=== PATIENT | male | born 1950 | race Caucasian/White ===

== ENCOUNTER → 2017-10-09 | Outpatient (CLI) | payer OTHER ==
[~2017-10-09] MED LIST: DIPH25CA65 PO
[2017-10-09 16:49] LABS: BASO % 0.3 %; BASO ABS # 0.02 K/uL (0-0.2); EOS % 2.9 %; HEMATOCRIT 41.9 % (42-52); HEMOGLOBIN 14.3 g/dL (14.0-18.0); IG# 0.01 K/uL (0.00-0.02); LYMPH ABS # 2.72 K/uL (1.2-3.4); MEAN CELL VOLUME 87.3 fL (80-100); MEAN CORPUSCULAR HEMOGLOBIN 29.8 pg (25-34); MEAN CORPUSCULAR HGB CONC 34.1 g/dl (32-36); MEAN PLATELET VOLUME 11.6 fL (7.4-10.4); MONO % 8.2 %; MONO ABS # 0.57 K/uL (0.11-0.59); NEUT % 49.5 %; NEUT ABS # 3.46 K/uL (1.4-6.5); PLATELET COUNT 211 K/uL (130-400); RED CELL DISTRIBUTION WIDTH CV 13.1 % (11.5-14.5); RED CELL DISTRIBUTION WIDTH SD 42.1 fL (36.4-46.3); WHITE BLOOD COUNT 6.98 K/uL (4.8-10.8)
[2017-10-09 17:06] LABS: ALBUMIN 3.9 gm/dl (3.4-5.0); ALKALINE PHOSPHATASE 47 U/L (45-117); ALT/SGPT 27 U/L (12-78); AST/SGOT 23 U/L (15-37); BLOOD UREA NITROGEN 14 mg/dl (7-18); CALCIUM 9.4 mg/dl (8.5-10.1); CARBON DIOXIDE 27 mmol/L (21-32); CHOLESTEROL 234 mg/dl (0-200); CREATININE 1.16 mg/dl (0.60-1.40); GLUCOSE 86 mg/dl (70-99); LDL CHOLESTEROL CALCULATED 119 mg/dl; POTASSIUM 4.3 mmol/L (3.5-5.1); SODIUM 138 mmol/L (136-145); TRANSFERRIN 243 mg/dl (200-360)
== END | disposition home or self-care (01) ==
LOC: C.LABBFT 14:19
PROVIDERS: ATTEND Physician Assistant Medical
DX: D64.9 Anemia, unspecified (principal); Z12.5 Encounter for screening for malignant neoplasm of prostate

== ENCOUNTER 2021-01-20 14:38 | Inpatient (IN) ==
[2021-01-20] MEDS ORDERED: ACETAMINOPHEN 1,000 MG/100 ML VIAL IV STA (15:02)
[2021-01-20] MEDS ORDERED: SODIUM CHLORIDE 0.9% 1000ML 1,000 ML IV ONE (15:02)
[2021-01-20] MEDS ORDERED: PIPERACILL/TAZOBAC CONSULT ACTIVE PRN (15:05)
[2021-01-20] MEDS ORDERED: PIPERACILLIN/TAZOBACTAM 4.5 GM/120 ML BAG IV ONE (15:05)
--- NOTE | 2021-01-20 15:13 | Emergency Department Note ---
Impression & Plan Diverticular disease of intestine with perforation and abscess, Leukocytosis, Abdominal pain ED Provider Note NAME: LORE LANIER AGE: 70 SEX: M ARRIVES VIA: Walk-In INFORMANT: Patient, ED PROVIDER(S): Erik Venegas MD CHIEF COMPLAINT: Referred, abdominal pain, abnormal CT PLAN: Disposition: Admit MEDICAL DECISION MAKING: The patient is a pleasant 70-year-old gentleman with a past medical history of hyper lipidemia, hypertension who presents emergency department for evaluation after having outpatient CT performed today which showed diverticulitis with 32 mm abscess in setting of patient reporting abdominal pain in the left lower quadrant approximately a week ago that lasted for couple of days and then resolved but then with symptoms of constipation and ongoing abdominal fullness since then. The patient denies any fevers though was told he had a fever of 101 in the office prior to arrival. He denies any nausea vomiting and last ate donuts this morning. He denies cough, congestion, chest pain, shortness of breath. He denies any abdominal pain at this time. He reports he has been moving his bowels recently, and move them this morning and yesterday which she described as soft and less volume than usual. On arrival the patient is in no acute distress, afebrile with stable vital signs. His abdomen is nontender at this time. WBC 12.3K. H/H 11.6/34.7 slightly decreased from prior values. Chemistry without metabolic acidosis. Lactate 1.2, within normal limits. LFTs are unremarkable. UA without convincing evidence of infection. COVID-19 PCR negative. Influenza and RSV PCR also negative. Patient agrees with plan for admission for IV ABX. Zosyn ordered. Case was discussed with General surgery PAC, Uzair Drew, and agrees initial management will be IV antibiotics. [place] [facility] [place] the patient for admission. Triage Nursing notes reviewed and agree them. Prior medical records reviewed Vital Signs: reviewed and remarkable for no significant abnormalities Differential diagnosis: Appendicitis, testicular torsion, infections, diverticulitis, UTI, obstruction, mesenteric ischemia, aortic pathology, inflammatory bowel disease, renal colic, PUD, pancreatitis, biliary pathology, hernia, volvulus, constipation, as well as other pathologies. ER treatment provided: See below. Diagnostics interpreted by me: ECG: Sinus rhythm, 90 bpm, PACs, no overt ST elevation or depression. Cardiac Monitoring: An order for continuous cardiac monitoring was placed and demonstrated Sinus rhythm, 90 bpm, PACs. Laboratory studies: See below Imaging studies: Outpatient CT: 01/20/2021. CT abd pelvis oral and IV con CLINICAL HISTORY: R10.9 - Unspecified abdominal pain GENERALIZED ABDOMINAL PAIN COMPARISON STUDY: Abdominal ultrasound performed October 2010 TECHNIQUE: Patient was scanned following administration of dilute oral contrast, and in a dynamic helical fashion during the intravenous administration of 89 cc of Optiray 300 A dose lowering technique was utilized adhering to the principles of ALARA. CT DOSE: 756.32 mGycm FINDINGS: Lower chest: There are scattered bilateral lower lobe pulmonary nodules, the largest of which measures 6.4 mm. A 3-6 months follow-up study is recommended per Fleischner criteria. Small hiatal hernia Liver: There is a subcentimeter left hepatic lobe hypodensity, likely representing a cyst. Gallbladder: There is soft tissue prominence of the gallbladder fundus statistically representing adenomyomatosis. Spleen: Normal in size and attenuation. Pancreas: Unremarkable. Adrenal glands: Unremarkable. Kidneys: 0r there is a rim calcified 13 mm left renal artery aneurysm. There is 17 mm left renal cyst. There is no hydronephrosis. Bowel: There are no transition zones to indicate bowel obstruction. The appendix appears normal. There is sausagelike thickening of the sigmoid colon with infiltration of the perisigmoid fat. The findings are indicative of acute diverticulitis. There is a 32 mm intramural abscess. Follow-up evaluation is recommended to exclude the unlikely possibility of an underlying neoplasm. Peritoneum: There is no intraperitoneal free air or abdominal ascites. There are small fat-containing inguinal hernias. There is a tiny fat-containing umbilical hernia Vasculature: The abdominal aorta is normal in course and caliber. Adenopathy: None. Pelvic viscera: There is mild prostatomegaly Skeletal structures: No destructive osseous lesions are seen. IMPRESSION: 1. Acute sigmoid diverticulitis with a 32 mm intramural abscess 2. No evidence of bowel obstruction. No evidence of free air. Normal appendix 3. 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 Bilateral pulmonary nodules measuring up to 6 mm in diameter. 3-6 months follow-up is recommended per Fleischner criteria. Consultation(s): General surgery PAC, Uzair Drew. [facility] [place] Dr. Kimbrough. HPI: The patient is a pleasant 70-year-old gentleman with a past medical history of hyper lipidemia, hypertension who presents to the emergency department for evaluation after having outpatient CT performed today which showed diverticulitis with 32 mm abscess in setting of patient reporting abdominal pain in the left lower quadrant approximately a week ago that lasted for couple of days and then resolved but then with symptoms of constipation and ongoing abdominal fullness since then. The patient denies any fevers though was told he had a fever of 101 in the office prior to arrival. He denies any nausea vomiting and last ate donuts this morning. He denies cough, congestion, chest pain, shortness of breath. He denies any abdominal pain at this time. He repor ts he has been moving his bowels recently, and move them this morning and yesterday which she described as soft and less volume than usual. ROS: See above HPI for pertinent positives & negatives. A total of 10 systems reviewed and were otherwise negative. PAST MEDICAL HISTORY:See Below PAST SURGICAL HISTORY:See Below FAMILY HISTORY:See Below SOCIAL HISTORY:See Below HOME MEDICATIONS:See Below ALLERGIES:See Below VITALS:See Below PHYSICAL EXAMINATION: GENERAL: Awake, alert, relatively well-appearing, in no distress HENT: Normocephalic, atraumatic. Oropharynx with dry mucous membranes and otherwise unremarkable. EYES: Normal conjunctiva. Sclera non-icteric. NECK: Supple. No nuchal rigidity. FROM. No JVD. RESPIRATORY: Clear to auscultation. CARDIAC: Regular rate, normal rhythm. Extremities warm and well perfused. Pulses equal. ABDOMEN: Soft, non-distended. No tenderness to palpation. No rebound or guarding. No masses. RECTAL: Deferred. MUSCULOSKELETAL: Chest examination reveals no tenderness. The back is symmetrical on inspection without obvious abnormality. There is no CVA tenderness to palpation. No joint edema. LOWER EXTREMITIES: Calves are equal size bilaterally and non-tender. No edema. No discoloration. NEURO: Normal sensorium. No sensory or motor deficits noted. SKIN: No rash or jaundice noted. 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 Beliefs That Will Affect Care: None marital status: Current Living Situation: Spouse current occupational status: retired Other Information That Helps Us Care for You: No Feels Safe at Home: Yes Safety Concerns: Feels Safe At This Time Assistive Devices: None Allergies Allergies Allergy/AdvReac Type Severity Reaction Status Date / Time Lisinopril TABS Allergy Intermediate angioedema Uncoded 01/20/21 15:24 amlodipine Allergy Unknown Unknown Uncoded 01/20/21 15:24 Home Meds Home Medications Medication Instructions Recorded Confirmed ferrous sulfate 325 mg (65 mg 325 mg PO DAILY tab 10/24/19 01/20/21 iron) tablet multivitamin 1 tab PO DAILY 01/20/21 01/20/21 triamterene-hydrochlorothiazid 0.5 tab PO QAM 01/20/21 01/20/21 Previous Rx's Medication Instructions Recorded rosuvastatin 5 mg tablet 5 mg PO DAILY #30 tab 11/08/20 Results & Data (ED) Vital Signs Vital Signs - 24 hr 01/20/21 14:44 01/20/21 15:01 01/20/21 16:00 Temperature 37.1 C Temperature Source Oral Pulse Rate 74 83 Pulse Rate from SpO2 Sensor 75 Respiratory Rate 18 20 16 Respiratory Effort / Characteristics Non-Labored Blood Pressure 152/81 H 134/70 Blood Pressure Mean 104 91 Pulse Oximetry 96 94 Oxygen Delivery Method Room Air Room Air Sepsis Recent Fever Within 48 Hours Yes Sepsis New/Unexplained Change in Mental Status N/A Sepsis Action Taken by Nursing MD Previously Notified 01/20/21 16:04 01/20/21 16:30 Temperature Temperature Source Pulse Rate 80 Pulse Rate from SpO2 Sensor 82 Respiratory Rate 14 Respiratory Effort / Characteristics Blood Pressure 120/62 Blood Pressure Mean 81 Pulse Oximetry 96 97 Oxygen Delivery Method Room Air Sepsis Recent Fever Within 48 Hours Sepsis New/Unexplained Change in Mental Status Sepsis Action Taken by Nursing Laboratory Data Result diagrams: 01/20/21 15:20 01/20/21 15:20 Lab Results 01/20/21 01/20/21 01/20/21 Range/Units 15:20 15:20 15:20 WBC 12.39 H (4.8-10.8) K/uL RBC 4.02 L (4.7-6.1) M/uL Hgb 11.6 L (14.0-18.0) g/dL Hct 34.7 L (42-52) % MCV 86.3 (80-100) fL MCH 28.9 (25-34) pg MCHC 33.4 (32-36) g/dL RDW Std Deviation 41.7 (36.4-46.3) fL RDW Coeff of Aidan 13.0 (11.5-14.5) % Plt Count 258 (130-400) K/uL MPV 10.2 (7.4-10.4) fL Immature Gran % (Auto) 0.3 % Neut % (Auto) 73.7 % Lymph % (Auto) 15.8 % [place] % (Auto) 9.1 % Eos % (Auto) 1.0 % Baso % (Auto) 0.1 % Neut # (Auto) 9.13 H (1.4-6.5) K/uL Lymph # (Auto) 1.96 (1.2-3.4) K/uL [place] # (Auto) 1.13 H (0.11-0.59) K/uL Eos # (Auto) 0.12 (0-0.5) K/uL Baso # (Auto) 0.01 (0-0.2) K/uL Immature Gran # (Auto) 0.04 H (0.00-0.02) K/uL PT 10.6 (9.0-12.0) Seconds INR 1.0 (0.9-1.1) APTT 28.7 (21.0-31.0) Seconds PTT Ratio 1.1 Sodium 134 L (136-145) mmol/L Potassium 3.7 (3.5-5.1) mmol/L Chloride 101 (98-107) mmol/L Carbon Dioxide 26 (21-32) mmol/L Anion Gap 7.0 (3-11) BUN 18 (7-18) mg/dl Creatinine 1.23 (0.6-1.4) mg/dl Est Cr Clr Drug Dosing 59.3 ml/min Est GFR ( Amer) 69.5 Est GFR (Non-Af Amer) 59.9 BUN/Creatinine Ratio 14.5 (10-20) Glucose 82 (70-99) mg/dl Lactate (0.4-2.0) mmol/L Calcium 9.1 (8.5-10.1) mg/dl Magnesium 2.1 (1.8-2.4) mg/dl Total Bilirubin 0.7 (0.2-1) mg/dl AST 19 (15-37) U/L ALT 18 (12-78) U/L Alkaline Phosphatase 52 (45-117) U/L Total Protein 7.6 (6.4-8.2) gm/dl Albumin 3.2 L (3.4-5.0) gm/dl Globulin 4.4 H (2.5-4.0) gm/dl Albumin/Globulin Ratio 0.7 L (0.9-2) Urine Color Urine Appearance (Clear) Urine pH (4.5-7.5) Ur Specific Stow (1.000-1.030) Urine Protein (Negative) Urine Glucose (UA) (Negative) Urine Ketones (Negative) Urine Blood (Negative) Urine Nitrite (Negative) Urine Bilirubin (Negative) Urine Urobilinogen (Negative) Ur Leukocyte Esterase (Negative) Urine WBC (Auto) (0-5) /hpf Urine RBC (Auto) (0-4) /hpf U Hyaline Cast (Auto) (0-5) /lpf U Epithel Cells (Auto) (0-5) /lpf Urine Bacteria (Auto) (Negative) COVID-19 Eval Order SARS-CoV-2 (PCR) (Negative) Influenza Type A (PCR) (Neg) Influenza Type B (PCR) (Neg) RSV (RT-PCR) (Neg) 01/20/21 01/20/21 01/20/21 Range/Units 15:20 15:20 15:20 WBC (4.8-10.8) K/uL RBC (4.7-6.1) M/uL Hgb (14.0-18.0) g/dL Hct (42-52) % MCV (80-100) fL MCH (25-34) pg MCHC (32-36) g/dL RDW Std Deviation (36.4-46.3) fL RDW Coeff of Aidan (11.5-14.5) % Plt Count (130-400) K/uL MPV (7.4-10.4) fL Immature Gran % (Auto) % Neut % (Auto) % Lymph % (Auto) % [place] % (Auto) % Eos % (Auto) % Baso % (Auto) % Neut # (Auto) (1.4-6.5) K/uL Lymph # (Auto) (1.2-3.4) K/uL [place] # (Auto) (0.11-0.59) K/uL Eos # (Auto) (0-0.5) K/uL Baso # (Auto) (0-0.2) K/uL Immature Gran # (Auto) (0.00-0.02) K/uL PT (9.0-12.0) Seconds INR (0.9-1.1) APTT (21.0-31.0) Seconds PTT Ratio Sodium (136-145) mmol/L Potassium (3.5-5.1) mmol/L Chloride (98-107) mmol/L Carbon Dioxide (21-32) mmol/L Anion Gap (3-11) BUN (7-18) mg/dl Creatinine (0.6-1.4) mg/dl Est Cr Clr Drug Dosing ml/min Est GFR ( Amer) Est GFR (Non-Af Amer) BUN/Creatinine Ratio (10-20) Glucose (70-99) mg/dl Lactate 1.2 (0.4-2.0) mmol/L Calcium (8.5-10.1) mg/dl Magnesium (1.8-2.4) mg/dl Total Bilirubin (0.2-1) mg/dl AST (15-37) U/L ALT (12-78) U/L Alkaline Phosphatase (45-117) U/L Total Protein (6.4-8.2) gm/dl Albumin (3.4-5.0) gm/dl Globulin (2.5-4.0) gm/dl Albumin/Globulin Ratio (0.9-2) Urine Color Urine Appearance (Clear) Urine pH (4.5-7.5) Ur Specific Stow (1.000-1.030) Urine Protein (Negative) Urine Glucose (UA) (Negative) Urine Ketones (Negative) Urine Blood (Negative) Urine Nitrite (Negative) Urine Bilirubin (Negative) Urine Urobilinogen (Negative) Ur Leukocyte Esterase (Negative) Urine WBC (Auto) (0-5) /hpf Urine RBC (Auto) (0-4) /hpf U Hyaline Cast (Auto) (0-5) /lpf U Epithel Cells (Auto) (0-5) /lpf Urine Bacteria (Auto) (Negative) COVID-19 Eval Order CovFluRsv at [facility] SARS-CoV-2 (PCR) NEGATIVE (Negative) Influenza Type A (PCR) Negative (Neg) Influenza Type B (PCR) Negative (Neg) RSV (RT-PCR) Negative (Neg) 01/20/21 Range/Units 16:00 WBC (4.8-10.8) K/uL RBC (4.7-6.1) M/uL Hgb (14.0-18.0) g/dL Hct (42-52) % MCV (80-100) fL MCH (25-34) pg MCHC (32-36) g/dL RDW Std Deviation (36.4-46.3) fL RDW Coeff of Aidan (11.5-14.5) % Plt Count (130-400) K/uL MPV (7.4-10.4) fL Immature Gran % (Auto) % Neut % (Auto) % Lymph % (Auto) % [place] % (Auto) % Eos % (Auto) % Baso % (Auto) % Neut # (Auto) (1.4-6.5) K/uL Lymph # (Auto) (1.2-3.4) K/uL [place] # (Auto) (0.11-0.59) K/uL Eos # (Auto) (0-0.5) K/uL Baso # (Auto) (0-0.2) K/uL Immature Gran # (Auto) (0.00-0.02) K/uL PT (9.0-12.0) Seconds INR (0.9-1.1) APTT (21.0-31.0) Seconds PTT Ratio Sodium (136-145) mmol/L Potassium (3.5-5.1) mmol/L Chloride (98-107) mmol/L Carbon Dioxide (21-32) mmol/L Anion Gap (3-11) BUN (7-18) mg/dl Creatinine (0.6-1.4) mg/dl Est Cr Clr Drug Dosing ml/min Est GFR ( Amer) Est GFR (Non-Af Amer) BUN/Creatinine Ratio (10-20) Glucose (70-99) mg/dl Lactate (0.4-2.0) mmol/L Calcium (8.5-10.1) mg/dl Magnesium (1.8-2.4) mg/dl Total Bilirubin (0.2-1) mg/dl AST (15-37) U/L ALT (12-78) U/L Alkaline Phosphatase (45-117) U/L Total Protein (6.4-8.2) gm/dl Albumin (3.4-5.0) gm/dl Globulin (2.5-4.0) gm/dl Albumin/Globulin Ratio (0.9-2) Urine Color Yellow Urine Appearance Clear (Clear) Urine pH 5.5 (4.5-7.5) Ur Specific Stow 1.038 H (1.000-1.030) Urine Protein Negative (Negative) Urine Glucose (UA) Negative (Negative) Urine Ketones Trace H (Negative) Urine Blood Trace H (Negative) Urine Nitrite Negative (Negative) Urine Bilirubin Negative (Negative) Urine Urobilinogen Negative (Negative) Ur Leukocyte Esterase Negative (Negative) Urine WBC (Auto) 0 (0-5) /hpf Urine RBC (Auto) 0-4 (0-4) /hpf U Hyaline Cast (Auto) 0 (0-5) /lpf U Epithel Cells (Auto) 0-5 (0-5) /lpf Urine Bacteria (Auto) Negative (Negative) COVID-19 Eval Order SARS-CoV-2 (PCR) (Negative) Influenza Type A (PCR) (Neg) Influenza Type B (PCR) (Neg) RSV (RT-PCR) (Neg) Administered Medications Enoxaparin Sodium (Enoxaparin Inj 40 Mg/0.4 Ml Syr) 40 mg SQ QPM MARICRUZ Stop: 02/19/21 20:59 Last Admin: 01/20/21 20:25 Dose: 40 mg Documented by: [id number] Lactated Ringer's (Lr) 1,000 mls @ 125 mls/hr IV .Q8H MARICRUZ Stop: 02/19/21 19:23 Last Admin: 01/20/21 20:22 Dose: 125 mls/hr Documented by: [id number] Piperacillin Sod/Tazobactam (Sod 3.375 gm/ Dextrose) 115 mls @ 28.75 mls/hr IV Q8H MARICRUZ; Protocol Stop: 01/30/21 19:59 Last Infusion: 01/21/21 00:53 Dose: 0 mls/hr Documented by: [id number] Admin: 01/20/21 20:53 Dose: 28.8 mls/hr Documented by: [id number] Discontinued Medications Sodium Chloride (Nss 1000ml) 1,000 mls @ 999 mls/hr IV .Q1H1M ONE Stop: 01/20/21 16:02 Last Infusion: 01/20/21 17:34 Dose: 0 mls/hr Documented by: [id number] Admin: 01/20/21 15:36 Dose: 999 mls/hr Documented by: [id number] Acetaminophen (Ofirmev) 1,000 mg in 100 mls @ 400 mls/hr IV NOW STA Stop: 01/20/21 15:16 Last Infusion: 01/20/21 15:51 Dose: 0 mls/hr Documented by: [id number] Admin: 01/20/21 15:36 Dose: 400 mls/hr Documented by: [id number] Piperacillin Sod/Tazobactam Sod (Zosyn) 4.5 gm in 120 mls @ 240 mls/hr IV NOW ONE Stop: 01/20/21 15:34 Last Infusion: 01/20/21 16:05 Dose: 0 mls/hr Documented by: [id number] Admin: 01/20/21 15:35 Dose: 240 mls/hr Documented by: [id number] Imaging Data Radiologist's Impression: Chest X-Ray 01/20/21 15:01 XR chest 1V portable CLINICAL HISTORY: Sepsis. COMPARISON STUDY: No previous studies for comparison. FINDINGS: Lung volumes are normal. Lungs are clear. There is no pneumothorax or pleural effusion. Moderate cardiomegaly is noted. Mediastinal contours are normal. There is no evidence for pulmonary edema. Old left-sided rib fractures are incidentally noted. IMPRESSION: No acute cardiopulmonary findings. Cardiomegaly. ACT 112: Negative or not required by law. Electronically signed by: Filemon Solis M.D. 01/20/2021 4:40 PM Discharge Plan Visit Data Chief Complaint: Abnormal Labs/Diagnostic Testing Stated Complaint: +CT FOR MASS IN ABD ED Provider: Erik Venegas Discharge Problem: Diverticular disease of intestine with perforation and abscess, Leukocytosis, Abdominal pain Patient Disposition: Admitted As Inpatient Discharge Instructions Interventions: ED Discharge Assessment Last Done: 01/20/21 19:11 Discharge Problem: Leukocytosis Qualifiers: Leukocytosis type: unspecified Qualified Code(s): D72.829 - Elevated white blood cell count, unspecified Abdominal pain Qualifiers: Abdominal location: left lower quadrant Qualified Code(s): R10.32 - Left lower quadrant pain
[2021-01-20 15:38] LABS: Basophils # (auto) 0.01 K/uL (0-0.2); Basophils % (auto) 0.1 %; Eosinophils # (auto) 0.12 K/uL (0-0.5); Hematocrit (blood only) 34.7 % (42-52); Hemoglobin 11.6 g/dL (14.0-18.0); Immature Granulocytes # (auto) 0.04 K/uL (0.00-0.02); Immature Granulocytes % (auto) 0.3 %; Lymphocytes # (auto) 1.96 K/uL (1.2-3.4); Lymphocytes % (auto) 15.8 %; Mean Corpuscular Hemoglobin 28.9 pg (25-34); Mean Corpuscular Hgb Conc 33.4 g/dL (32-36); Mean Corpuscular Volume 86.3 fL (80-100); Mean Platelet Volume 10.2 fL (7.4-10.4); Monocytes # (auto) 1.13 K/uL (0.11-0.59); Monocytes % (auto) 9.1 %; Neutrophils # (auto) 9.13 K/uL (1.4-6.5); Neutrophils % (auto) 73.7 %; Platelet Count 258 K/uL (130-400); RDW Standard Deviation 41.7 fL (36.4-46.3); Red Blood Count 4.02 M/uL (4.7-6.1); White Blood Count 12.39 K/uL (4.8-10.8)
--- NOTE | 2021-01-20 15:40 | Surgery Consultation ---
Date of Consultation January 20, 2021 Assessment & Plan (1) Diverticular disease of intestine with perforation and abscess: No acute abdominal findings. 3 cm diverticular abscess, WBC 12,000, would treat with IV antibiotics and bowel rest. Will continue to follow. Dr. Gibbonspatient to be admitted through the emergency room with a colonic/sigmoid intramural abscess of approximately 3 cm. Patient had symptoms of pain approximately 1 week ago and probably had a contained perforation at that point. Currently He is very stable but does have some mild obstructive symptoms from his colonic inflammation. I would keep him n.p.o. with ice only for least 48 hours and then possibly consider clear liquids but advance his diet very slowly. My concern would be obstructive symptoms from pericolonic inflammation. I suspect with this abscess he will be in the hospital for 5 to 7 days. I have discussed this with the patient and his History of Present Illness History of Present Illness 70 y/o male with abdominal pain last weeks for two days then feeling constipated and last night had fever of 100. Had outpatient CT today showing 3 cm diverticular abscess and referred to ED. No pain currently and has been eating but having only small BMs. No previous abdominal surgery. Diverticuli noted on colonoscopy 5 years ago but no previous diverticulitis and due for repeat c- scope this year. Allergies Allergy/AdvReac Type Severity Reaction Status Date / Time Lisinopril TABS Allergy Intermediate angioedema Uncoded 01/20/21 15:24 amlodipine Allergy Unknown Unknown Uncoded 01/20/21 15:24 Home Medications Medication Instructions Recorded Confirmed Type ferrous sulfate 325 mg (65 mg 325 mg PO DAILY tab 10/24/19 01/20/21 History iron) tablet rosuvastatin 5 mg tablet 5 mg PO DAILY #30 tab 11/08/20 01/20/21 Rx multivitamin 1 tab PO DAILY 01/20/21 01/20/21 History triamterene-hydrochlorothiazid 0.5 tab PO QAM 01/20/21 01/20/21 History Patient History Medical History HTN (hypertension) Hypercholesterolemia Leukopenia Surgical History No significant past surgical history Family History Father Amyotrophic lateral sclerosis Denies family history of Ovarian cancer Prostate cancer Myocardial infarction Breast cancer Colorectal cancer Social History Smoking Status: Never smoker Second Hand Exposure: No; Hx Alcohol Use: Yes Alcohol type Comment: socially Hx Substance Use: No marital status: Current Living Situation: Spouse current occupational status: retired Feels Safe at Home: Yes Review of Systems Constitutional: + fever; no chills and no anorexia Gastrointestinal: + abdominal pain and + constipation; no nausea and no vomiting Physical Exam Constitutional: WD/WN, vitals as above Respiratory: normal respiratory effort, lungs clear to auscultation Cardiovascular: RRR, no murmur, no edema Gastrointestinal (Abdomen): Inspection/Auscultation: abdomen not distended Percussion/Palpation: abdomen soft; abdomen nontender and no guarding Results & Data ([facility]) Vital Signs (Past 12 Hours) Vital Signs Temp Pulse Resp BP Pulse Ox 01/20/21 15:01 20 01/20/21 14:44 37.1 C 74 18 152/81 H 96 PG Care Time/CCT Total # of Minutes Spent Total Time Spent with Patient: Total time spent is greater than 50% in coordination of care (as documented) at patient's floor/unit and/or counseling patient: Coding Level of Care Code 28490 Initial Inpt Care Lvl 1 Diagnoses Diverticular disease of intestine with perforation and abscess K57.80
[2021-01-20 15:45] LABS: Partial Thromboplastin Ratio 1.1; Partial Thromboplastin Time 28.7 Seconds (21.0-31.0); Prothrombin Time 10.6 Seconds (9.0-12.0)
[2021-01-20 15:51] LABS: Albumin Level 3.2 gm/dl (3.4-5.0); BUN Creatinine Ratio 14.5 (10-20); Calcium 9.1 mg/dl (8.5-10.1); Creatinine Clr Calc Pharmacy 59.3 ml/min; Est GFR (African American) 69.5; Est GFR (Non-African American) 59.9; Magnesium 2.1 mg/dl (1.8-2.4); Potassium 3.7 mmol/L (3.5-5.1)
[2021-01-20 15:54] LABS: Albumin Globulin Ratio 0.7 (0.9-2); Bilirubin,Total 0.7 mg/dl (0.2-1); Globulin 4.4 gm/dl (2.5-4.0); Total Protein 7.6 gm/dl (6.4-8.2)
[2021-01-20 16:15] LABS: Influenza A virus by PCR Negative (Neg); Influenza B virus by PCR Negative (Neg); RSV by PCR Negative (Neg); SARS CoV2 RNA(COVID-19) InHosp NEGATIVE (Negative)
[2021-01-20 16:20] LABS: Appearance Urine Clear (Clear); Bacteria Urine Automated Negative (Negative); Bilirubin Urine Negative (Negative); Blood Urine Trace (Negative); Cast Urine Automated 0 /lpf (0-5); Color Urine Yellow; Epithelial Cell Urine Auto 0-5 /lpf (0-5); Glucose Urine UA Negative (Negative); Ketones Urine Trace (Negative); Leukocyte Esterase Urine Negative (Negative); Nitrite Urine Negative (Negative); Protein Urine Negative (Negative); RBC Urine Automated 0-4 /hpf (0-4); Specific Gravity Urine 1.038 (1.000-1.030); Urobilinogen Urine Negative (Negative); WBC Urine Automated 0 /hpf (0-5); pH Urine 5.5 (4.5-7.5)
--- NOTE | 2021-01-20 16:41 | XRay Report ---
XR chest 1V portable CLINICAL HISTORY: Sepsis. COMPARISON STUDY: No previous studies for comparison. FINDINGS: Lung volumes are normal. Lungs are clear. There is no pneumothorax or pleural effusion. Mod erate cardiomegaly is noted. Mediastinal contours are normal. There is no evidence for pulmonary richard a. Old left-sided rib fractures are incidentally noted. IMPRESSION: No acute cardiopulmonary findings. Cardiomegaly. ACT 112: Negative or not required by law. Electronically signed by: Filemon Solis M.D. 01/20/2021 4:40 PM
--- NOTE | 2021-01-20 16:56 | History & Physical Report ---
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 Conservative management with statin and antihypertensives. Consider annual surveillance with renal artery Doppler. (5) Pulmonary nodules: Incidental findings. 3-[address] chest follow up recommended. (6) DVT prophylaxis: Lovenox 40mg SQ daily Admission and Anticipated Discharge Date Admission Date: January 20, 2021 History of Present Illness Chief Complaint: Diverticulitis Primary Care Provider: Zhou Brown MD Xiang Kenyon is a 70-year-old male who presents to the ER with abdominal pain and outpatient CT showing diverticulitis with an abscess. He reports having 2 weeks of constipation. Abdominal pain started 6 days ago and seemed to initially get better. No hematemesis, melena, bright red blood in stool, nausea or vomiting. He went to see his PCP today who arranged an outpatient CT showing diverticulitis with a 32mm abscess therefore he was sent over to the ER. He reports having regular colonoscopies with Dr Chavez every 5 years due to polyps found. Next one would have been due in July. In the ER WBC was elevated. He was seen by surgery who recommend non-operative management at the current time. He was referred to medicine for admission and ongoing management of diverticulitits. Allergies Allergy/AdvReac Type Severity Reaction Status Date / Time Lisinopril TABS Allergy Intermediate angioedema Uncoded 01/20/21 15:24 amlodipine Allergy Unknown Unknown Uncoded 01/20/21 15:24 Home Medications Medication Instructions Recorded Confirmed Type ferrous sulfate 325 mg (65 mg 325 mg PO DAILY tab 10/24/19 01/20/21 History iron) tablet rosuvastatin 5 mg tablet 5 mg PO DAILY #30 tab 11/08/20 01/20/21 Rx multivitamin 1 tab PO DAILY 01/20/21 01/20/21 History triamterene-hydrochlorothiazid 0.5 tab PO QAM 01/20/21 01/20/21 History Past Med/Surg History Medical History HTN (hypertension) Hypercholesterolemia Leukopenia Surgical History No significant past surgical history Family History Father Amyotrophic lateral sclerosis Denies family history of Ovarian cancer Prostate cancer Myocardial infarction Breast cancer Colorectal cancer Social History Smoking Status: Never smoker Second Hand Exposure: No; Do You Dip or Chew Tobacco: No; Hx Alcohol Use: Yes Alcohol type: beer Alcohol type Comment: socially Hx Substance Use: No Preferred Language: Afghan Communication Ability: Effective Tread Cutter Required: No Beliefs That Will Affect Care: None marital status: Current Living Situation: Spouse current occupational status: retired Other Information That Helps Us Care for You: No Feels Safe at Home: Yes Safety Concerns: Feels Safe At This Time Assistive Devices: None Review of Systems Review of Systems: All systems reviewed & are unremarkable except as noted in HPI & below Physical Exam Constitutional: well developed and well nourished; no acute distress Eyes: + anicteric sclerae; normal pupil size ENMT: external ear and nose normal, oropharynx normal Neck: trachea midline, no thyromegaly Respiratory: normal respiratory effort, lungs clear to auscultation Cardiovascular: RRR, no murmur, no edema Gastrointestinal (Abdomen): Inspection/Auscultation: abdomen normal to inspection and + hyperactive bowel sounds; abdomen not distended Percussion/P alpation: + abdomen tender (mild LLQ) and abdomen soft; no guarding and abdomen not rigid Musculoskeletal: no cyanosis or clubbing, extremities motor strength 5/5 Skin: no rashes, warm and dry Neurologic: moves all extremities and awake; not confused Psychiatric: A+Ox3, euthymic affect Genitourinary: no CVA tenderness Results & Data Results & Data ([facility]) Vital Signs (Past 12 Hours) Vital Signs Temp Pulse Resp BP Pulse Ox 01/20/21 16:04 96 01/20/21 16:00 83 16 134/70 94 01/20/21 15:01 20 01/20/21 14:44 37.1 C 74 18 152/81 H 96 Diagnostic Findings XR chest 1V portable IMPRESSION: No acute cardiopulmonary findings. Cardiomegaly. CT abd pelvis oral and IV con IMPRESSION: 1. Acute sigmoid diverticulitis with a 32 mm intramural abscess 2. No evidence of bowel obstruction. No evidence of free air. Normal appendix 3. 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 Bilateral pulmonary nodules measuring up to 6 mm in diameter. 3-6 months follow-up is recommended per Fleischner criteria. Please refer to below summary of Fleischner criteria recommendations for follow- up of incidental CT nodules (Apolinar Garcia, Guidelines for management of small pulmonary nodules detected on CT scans: A statement from the Fleischner Society, Radiology 237: [phone].) Medications Administered ER Medications Given: Zosyn 4.5g IV ECG Indication: abdominal pain Rate (beats per minute): 90 Rhythm: normal sinus Findings: + PAC; no acute ischemic change Comparison ECG Date: no prior available Code Status & VTE Plan Code Status DNR/DNI per patient wishes VTE Prophylaxis Plan VTE Prophylaxis will be ordered: Yes PG Care Time/CCT Total # of Minutes Spent Total Time Spent with Patient: Total time spent is greater than 50% in coordination of care (as documented) at patient's floor/unit and/or counseling patient: Coding Level of Care Code 38513 Initial Inpt Care Lvl 3 Diagnoses Diverticular disease of intestine with perforation and abscess K57.80 HTN (hypertension) I10 Hypertension type: essential hypertension Hypercholesterolemia E78.00 Aneurysm of left renal artery I72.2 Pulmonary nodules R91.8 DVT prophylaxis Z29.9 (1) HTN (hypertension) Hypertension type: essential hypertension Qualified Code(s): I10 - Essential (primary) hypertension
[2021-01-20] MEDS ORDERED: ACETAMINOPHEN 1,000 MG/100 ML VIAL IV PRN (19:24)
[2021-01-20] MEDS ORDERED: HYDROmorphone INJ 0.5 MG/0.5 ML SYR IV PRN (19:24)
[2021-01-20] MEDS: LACTATED RINGER'S 1,000 ML IV SCH (20:22)
[2021-01-20] MEDS: ENOXAPARIN INJ 40 MG/0.4 ML SYR SQ SCH (20:25)
[2021-01-20] MEDS: PIPERACILLIN/TAZOBACTAM 3.375 GM in DEXTROSE 5% 100 ML IV SCH (20:53)
[2021-01-21] MEDS: LACTATED RINGER'S 1,000 ML IV SCH ×3 (04:07→22:55)
[2021-01-21] MEDS: PIPERACILLIN/TAZOBACTAM 3.375 GM in DEXTROSE 5% 100 ML IV SCH ×3 (04:07→19:37)
--- NOTE | 2021-01-21 06:33 | Surgery Progress Note ---
Date of Service January 21, 2021 Assessment & Plan (1) Diverticular disease of intestine with perforation and abscess: Patient with acute diverticulitis and intramural abscess He does not seem to be having much pain and appears to be very stable We will continue on ice only today Possibly some sips of liquids tomorrow, advance diet very slowly Monitor for obstructive symptoms Continue IV antibiotics Dr. Barry will be covering over the weekend Admission and Anticipated Discharge Date Admission Date: January 20, 2021 Subjective Patient is awake and alert sitting in his chair watching TV Vital signs are stable Taking no pain medication Review of Systems Review of Systems: All systems reviewed & are unremarkable except as noted in HPI & below Physical Exam Constitutional: well developed and well nourished; no acute distress Eyes: + anicteric sclerae Respiratory: normal respiratory effort; no respiratory distress Cardiovascular: Rate/Rhythm: regular rate Gastrointestinal (Abdomen): Inspection/Auscultation: abdomen not distended Musculoskeletal: Gait: normal gait Skin: no rashes, warm and dry Neurologic: awake Psychiatric: Orientation: alert Results & Data ([facility]) Vital Signs (Past 12 Hours) Vital Signs Temp Pulse Pulse Resp BP BP Pulse Ox 01/20/21 23:49 37.0 C 69 16 119/65 94 01/20/21 19:20 36.9 C 54 L 16 121/69 95 01/20/21 19:00 70 20 124/69 93 01/20/21 18:34 78 17 119/70 94 PG Care Time/CCT Total # of Minutes Spent Total Time Spent with Patient: Total time spent is greater than 50% in coordination of care (as documented) at patient's floor/unit and/or counseling patient: Coding Level of Care Code 37353 Subseq Hosp Care Lvl 3 Diagnoses Diverticular disease of intestine with perforation and abscess K57.80
[2021-01-21 07:15] LABS: Creatinine Clr Calc Pharmacy 63.5 ml/min; Est GFR (African American) 75.4
--- NOTE | 2021-01-21 12:18 | Hospitalist Progress Note ---
Date of Service January 21, 2021 Assessment & Plan (1) Diverticular disease of intestine with perforation and abscess: Zosyn 3.375g IV Q8H NPO continue IVF. If remains pain free, will iniate diet in AM. 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 Conservative management with statin and antihypertensives. Consider annual surveillance with renal artery Doppler. (5) Pulmonary nodules: Incidental findings. 3-[address] chest follow up recommended. (6) DVT prophylaxis: Lovenox 40mg SQ daily Admission and Anticipated Discharge Date Admission Date: January 20, 2021 Subjective Patient reports feeling great. Patient reports no new symptoms. Review of Systems Review of Systems: All systems reviewed & are unremarkable except as noted in HPI & below Physical Exam Physical Exam: Constitutional: well developed and well nourished; no acute distress Eyes: + anicteric sclerae; normal pupil size ENMT: external ear and nose normal, oropharynx normal Neck: trachea midline, no thyromegaly Respiratory: normal respiratory effort, lungs clear to auscultation Cardiovascular: RRR, no murmur, no edema Gastrointestinal (Abdomen): Inspection/Auscultation: abdomen normal to inspection and + hyperactive bowel sounds; abdomen not distended nontendr abdomen soft; no guarding and abdomen not rigid Musculoskeletal: no cyanosis or clubbing, extremities motor strength 5/5 Skin: no rashes, warm and dry Neurologic: moves all extremities and awake; not confused Psychiatric: A+Ox3, euthymic affect Genitourinary: no CVA tenderness Results & Data Results & Data ([facility]) Vital Signs (Past 12 Hours) Vital Signs Temp Pulse Resp BP Pulse Ox 01/21/21 07:20 37.0 C 81 17 126/71 94 PG Care Time/CCT Total # of Minutes Spent Total Time Spent with Patient: Total time spent is greater than 50% in coordination of care (as documented) at patient's floor/unit and/or counseling patient: Coding Level of Care Code 77906 Subseq Hosp Care Lvl 2 Diagnoses Diverticular disease of intestine with perforation and abscess K57.80 HTN (hypertension) I10 Hypertension type: essential hypertension Hypercholesterolemia E78.00 Aneurysm of left renal artery I72.2 Pulmonary nodules R91.8 DVT prophylaxis Z29.9 Time Spent (min) 25 (1) HTN (hypertension) Hypertension type: essential hypertension Qualified Code(s): I10 - Essential (primary) hypertension
--- NOTE | 2021-01-21 12:42 | Electrocardiogram Report ---
Test Reason : Blood Pressure : / mmHG Vent. Rate : 090 BPM Atrial Rate : 090 BPM P-R Int : 192 ms QRS Dur : 104 ms QT Int : 362 ms P-R-T Axes : 045 018 062 degrees QTc Int : 442 ms Sinus rhythm with Premature atrial complexes with Aberrant conduction Minimal voltage criteria for LVH, may be normal variant Borderline ECG No previous ECGs available Confirmed by Cruzito Oliver ([id number]) on 01/21/2021 12:42:06 PM Referred By: Keeley Serrano Confirmed By:Cruzito Oliver
[2021-01-21] MEDS: ENOXAPARIN INJ 40 MG/0.4 ML SYR SQ SCH (19:38)
[2021-01-22] MEDS: PIPERACILLIN/TAZOBACTAM 3.375 GM in DEXTROSE 5% 100 ML IV SCH ×3 (04:49→20:51)
[2021-01-22 07:06] LABS: Est GFR (African American) 80.4; Est GFR (Non-African American) 69.4
[2021-01-22] MEDS: LACTATED RINGER'S 1,000 ML IV SCH ×2 (08:16→17:52)
--- NOTE | 2021-01-22 08:39 | Surgery Progress Note ---
Date of Service January 22, 2021 Assessment & Plan (1) Diverticular disease of intestine with perforation and abscess: Patient clinically doing well VSS and afebrile He denies any abdominal pain/nausea/vomiting He is passing flatus and starting to move some loose stools Okay to advance diet to clear liquids this AM Patient seen. He feels great. He has no pain whatsoever. We will initiate clear liquid diet. Per Dr. Gibbons's instructions we will slowly advance diet. Discharge planning. Admission and Anticipated Discharge Date Admission Date: January 20, 2021 Subjective Patient states he is feeling well. Denies abdominal pain/nausea/vomiting. Says he is passing flatus and having loose stools. Physical Exam Physical Exam: awake/alert Constitutional: no acute distress Respiratory: normal respiratory effort Gastrointestinal (Abdomen): Inspection/Auscultation: abdomen not distended Percussion/Palpation: abdomen soft; abdomen nontender Results & Data ([facility]) Vital Signs (Past 12 Hours) Vital Signs Temp Pulse Resp BP Pulse Ox 01/22/21 07:20 36.5 C 73 17 120/71 94 01/21/21 22:34 37.1 C 81 16 154/70 H 93 PG Care Time/CCT Total # of Minutes Spent Total Time Spent with Patient: Total time spent is greater than 50% in coordination of care (as documented) at patient's floor/unit and/or counseling patient: Coding Level of Care Code 36546 Subseq Hosp Care Lvl 2 Diagnoses Diverticular disease of intestine with perforation and abscess K57.80
[2021-01-22] MEDS: ENOXAPARIN INJ 40 MG/0.4 ML SYR SQ SCH (21:09)
--- NOTE | 2021-01-22 22:56 | Hospitalist Progress Note ---
Date of Service January 22, 2021 Assessment & Plan (1) Diverticular disease of intestine with perforation and abscess: Remains pain free. Zosyn 3.375g IV Q8H Now on clear liquid diet, will transition to a full liquid diet. continue IVF for now. Follow up with Dr Chavez for colonoscopy after resolution of diverticulitis (2) HTN (hypertension): Hold his usual diuretic for now as IVF are ordered. 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 Conservative management with statin and antihypertensives. Consider annual surveillance with renal artery Doppler. (5) Pulmonary nodules: Incidental findings. 3-[address] chest follow up recommended. (6) DVT prophylaxis: Lovenox 40mg SQ daily Admission and Anticipated Discharge Date Admission Date: January 20, 2021 Subjective Patient is feeling well. He has no symptoms. He tolerated his clear liquid diet for breakfast and lunch. Review of Systems Review of Systems: All systems reviewed & are unremarkable except as noted in HPI & below Physical Exam Physical Exam: Constitutional: well developed and well nourished; no acute distress Eyes: + anicteric sclerae; normal pupil size ENMT: external ear and nose normal, oropharynx normal Neck: trachea midline, no thyromegaly Respiratory: normal respiratory effort, lungs clear to auscultation Cardiovascular: RRR, no murmur, no edema Gastrointestinal (Abdomen): Inspection/Auscultation: abdomen normal to inspection and + hyperactive bowel sounds; abdomen not distended nontendr abd omen soft; no guarding and abdomen not rigid Musculoskeletal: no cyanosis or clubbing, extremities motor strength 5/5 Skin: no rashes, warm and dry Neurologic: moves all extremities and awake; not confused Psychiatric: A+Ox3, euthymic affect Genitourinary: no CVA tenderness Results & Data Results & Data ([facility]) Vital Signs (Past 12 Hours) Vital Signs Temp Pulse Resp BP Pulse Ox 01/22/21 22:17 36.9 C 67 16 145/77 H 90 01/22/21 14:32 36.6 C 69 16 125/68 97 PG Care Time/CCT Total # of Minutes Spent Total Time Spent with Patient: Total time spent is greater than 50% in coordination of care (as documented) at patient's floor/unit and/or counseling patient: Coding Level of Care Code 81017 Subseq Hosp Care Lvl 2 Diagnoses Diverticular disease of intestine with perforation and abscess K57.80 HTN (hypertension) I10 Hypertension type: essential hypertension Hypercholesterolemia E78.00 Aneurysm of left renal artery I72.2 Pulmonary nodules R91.8 DVT prophylaxis Z29.9 Time Spent (min) 25 (1) HTN (hypertension) Hypertension type: essential hypertension Qualified Code(s): I10 - Essential (primary) hypertension
[2021-01-23] MEDS: PIPERACILLIN/TAZOBACTAM 3.375 GM in DEXTROSE 5% 100 ML IV SCH (03:18)
[2021-01-23] MEDS: LACTATED RINGER'S 1,000 ML IV SCH (03:18)
[2021-01-23 08:01] LABS: Basophils # (auto) 0.01 K/uL (0-0.2); Basophils % (auto) 0.2 %; Eosinophils # (auto) 0.22 K/uL (0-0.5); Eosinophils % (auto) 3.9 %; Hematocrit (blood only) 36.1 % (42-52); Hemoglobin 12.4 g/dL (14.0-18.0); Immature Granulocytes # (auto) 0.02 K/uL (0.00-0.02); Immature Granulocytes % (auto) 0.4 %; Lymphocytes # (auto) 1.85 K/uL (1.2-3.4); Lymphocytes % (auto) 33.2 %; Mean Corpuscular Hemoglobin 29.7 pg (25-34); Mean Corpuscular Hgb Conc 34.3 g/dL (32-36); Mean Corpuscular Volume 86.4 fL (80-100); Monocytes # (auto) 0.38 K/uL (0.11-0.59); Monocytes % (auto) 6.8 %; Neutrophils # (auto) 3.09 K/uL (1.4-6.5); Neutrophils % (auto) 55.5 %; Platelet Count 312 K/uL (130-400); RDW Standard Deviation 41.6 fL (36.4-46.3); Red Blood Count 4.18 M/uL (4.7-6.1); White Blood Count 5.57 K/uL (4.8-10.8)
--- NOTE | 2021-01-23 08:09 | Surgery Progress Note ---
Date of Service January 23, 2021 Assessment & Plan (1) Diverticular disease of intestine with perforation and abscess: improved WBC 5 cont on Zosyn as above. looks great. no pain. natalie diet. ok to slowly advance diet. potential d/c today/tomorrow. will d/w Dr. Galloway. home/diet instructions given. f/u Dr. Gibbons 1-2 weeks. Admission and Anticipated Discharge Date Admission Date: January 20, 2021 Subjective bowels moving, had full liquids last night, no fevers/chills Physical Exam Gastrointestinal (Abdomen): Inspection/Auscultation: abdomen not distended Percussion/Palpation: abdomen nontender and + abdomen not soft Results & Data ([facility]) Vital Signs (Past 12 Hours) Vital Signs Temp Pulse Resp BP Pulse Ox 01/23/21 07:30 37.0 C 78 144/81 H 96 01/22/21 22:17 36.9 C 67 16 145/77 H 90 PG Care Time/CCT Total # of Minutes Spent Total Time Spent with Patient: Total time spent is greater than 50% in coordination of care (as documented) at patient's floor/unit and/or counseling patient: Coding Level of Care Code 26043 Subseq Hosp Care Lvl 2 Diagnoses Diverticular disease of intestine with perforation and abscess K57.80
[2021-01-23 08:15] LABS: Creatinine Clr Calc Pharmacy 68.2 ml/min; Est GFR (African American) 82.2
--- NOTE | 2021-01-23 15:55 | Discharge Summary ---
Date of Service January 23, 2021 Admission HPI Per Admitting Provider Xiang Kenyon is a 70-year-old male who presents to the ER with abdominal pain and outpatient CT showing diverticulitis with an abscess. He reports having 2 weeks of constipation. Abdominal pain started 6 days ago and seemed to initially get better. No hematemesis, melena, bright red blood in stool, nausea or vomiting. He went to see his PCP today who arranged an outpatient CT showing diverticulitis with a 32mm abscess therefore he was sent over to the ER. He reports having regular colonoscopies with Dr Chavez every 5 years due to polyps found. Next one would have been due in July. In the ER WBC was elevated. He was seen by surgery who recommend non-operative management at the current time. He was referred to medicine for admission and ongoing management of diverticulitits. Principal Diagnosis Diverticulitis with small abscess Discharge Exam Constitutional WD/WN, vitals as above Eyes EOM intact bilaterally; no conjunctival abnormality ENMT external ear and nose normal, oropharynx normal Neck trachea midline, no thyromegaly normal visual inspection Respiratory normal respiratory effort, lungs clear to auscultation no respiratory distress Cardiovascular RRR, no murmur, no edema Gastrointestinal (Abdomen) Inspection/Auscultation: abdomen normal to inspection; abdomen not distended Musculoskeletal no cyanosis or clubbing, extremities motor strength 5/5 Skin no rashes, warm and dry Neurologic moves all extremities and awake Psychiatric Orientation: alert, oriented to person and cooperative Discharge Data Allergies Allergy/AdvReac Type Severity Reaction Status Date / Time lisinopril Allergy Intermediate Angioedema Verified 01/23/21 07:33 amlodipine Allergy Unknown Unknown Verified 01/23/21 07:33 Consultations 01/20/21 16:23 ED Decision to Admit Stat Hospital Course (1) Diverticular disease of intestine with perforation and abscess: Remains pain free. Zosyn 3.375g IV Q8H - Did well. Cleared by surgery for discharge on 01/23. Sent out with 7 more days of abx to complete a 10-day course. Will need to see Dr. Gibobns next week to ensure he continues to improve. - Follow up with Dr Chavez for colonoscopy after resolution of diverticulitis. (2) HTN (hypertension): Hold his usual diuretic for now as IVF are ordered. 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 Conservative management with statin and antihypertensives. - Consider annual surveillance with renal artery Doppler. (5) Pulmonary nodules: Incidental findings. 3-[address] chest follow up recommended. (6) DVT prophylaxis: Lovenox 40mg SQ daily Total Time Total Time Spent Total Time Spent (In Minutes): 35 Discharge Plan Discharge Items Patient Disposition: Home - Self-Care Reason For Visit: DIVERTICULITIS WITH ABSCESS Discharge Diagnosis: Diverticulitis Activity: Resume your previous activity Non-emergency contact: Primary Care Provider and Surgeon Call non-emergency contact if: your symptoms worsen and your temperature is above 101 Follow-up/Referrals: Juan Manuel Gibbons MD, FACS [Physician] - (Please call the office to be seen in 7- 10 days for diverticulitis/abscess) Osmani Brown MD [Primary Care Provider] - Diet: Low Fiber Addtl Attending Provider Instructions: Mr. Kenyon, Devon were admitted to the hospital with diverticulitis which is an infection in the large intestine (also called "colon"). You also had a small abscess noted on the CT scan. We treated you with antibiotics, and you are doing better now. Please slowly increase your diet at home until you are back to your normal diet. High fiber diet will help keep this from happening again. Please take your next antibiotic dose tonight and for the next week until gone, even if you are feeling better sooner. Please follow up with Dr. Gibbons. Of note, the CT scan also saw some small pulmonary nodule. Most of the nodules we find on CT scans (for all patients) are benign. The radiology team recommended following up with your PCP for 3-6 months follow-up as recommended. Pending Studies at Discharge: No Stand-Alone Forms: My [facility] [employer], Smoking Cessation Medications and DC Order Prescriptions: New amoxicillin-pot clavulanate [Augmentin] 875-125 mg tablet 1 tab PO BID Qty: 15 RF: 0 Continued rosuvastatin 5 mg tablet 5 mg PO DAILY Qty: 30 RF: 5 ferrous sulfate [Nilton-Time] 325 mg (65 mg iron) tablet 325 mg PO DAILY RF: 0 multivitamin Tablet 1 tab PO DAILY RF: 0 triamterene-hydrochlorothiazid 37.5-25 mg tablet 0.5 tab PO QAM RF: 0 Discharge Orders: Discharge Order (Routine); Ordered 01/23/21 Ordered By: Emir Edmond/Other Patient Handouts: ED Diverticulitis Admission Data Admit Date/Time: 01/20/21 16:54 Attending Provider: Emir Galloway Admit Provider: Carlo Kimbrough Primary Care Provider: Osmani Brown Other Providers: Emir Galloway Other Interventions: Discharge Summary Assessment (RN) Last Done: 01/23/21 09:24 Coding Level of Care Code D/C Day Management >30 mins Diagnoses Diverticular disease of intestine with perforation and abscess K57.80 HTN (hypertension) I10 Hypertension type: essential hypertension Hypercholesterolemia E78.00 Aneurysm of left renal artery I72.2 Pulmonary nodules R91.8 DVT prophylaxis Z29.9
[2021-01-23] MEDS ORDERED: ROSUVASTATIN CALCIUM 5 MG TAB PO SCH (21:00)
== END 2021-01-23 10:29 | disposition home or self-care (01) | DRG 392 ==
LOC: ED 14:38 → SUATTDRO 16:54 → 3N 16:54

== ENCOUNTER 2021-07-22 11:41 | Observation (INO) ==
[2021-07-22 14:42] LABS: Basophils # (auto) 0.03 K/uL (0-0.2); Basophils % (auto) 0.3 %; Eosinophils # (auto) 0.11 K/uL (0-0.5); Hematocrit (blood only) 39.5 % (42-52); Hemoglobin 13.1 g/dL (14.0-18.0); Immature Granulocytes # (auto) 0.03 K/uL (0.00-0.02); Immature Granulocytes % (auto) 0.3 %; Lymphocytes # (auto) 3.13 K/uL (1.2-3.4); Lymphocytes % (auto) 27.7 %; Mean Corpuscular Hemoglobin 29.4 pg (25-34); Mean Corpuscular Hgb Conc 33.2 g/dL (32-36); Mean Corpuscular Volume 88.6 fL (80-100); Mean Platelet Volume 10.4 fL (7.4-10.4); Monocytes # (auto) 1.02 K/uL (0.11-0.59); Neutrophils # (auto) 6.97 K/uL (1.4-6.5); Neutrophils % (auto) 61.7 %; Platelet Count 212 K/uL (130-400); RDW Coefficient of Variation 13.2 % (11.5-14.5); RDW Standard Deviation 42.4 fL (36.4-46.3); Red Blood Count 4.46 M/uL (4.7-6.1); White Blood Count 11.29 K/uL (4.8-10.8)
[2021-07-22 14:52] LABS: Appearance Urine Clear (Clear); Bacteria Urine Automated Negative (Negative); Bilirubin Urine Negative (Negative); Blood Urine Trace (Negative); Color Urine Yellow; Epithelial Cell Urine Auto 0-5 /lpf (0-5); Glucose Urine UA Negative (Negative); Ketones Urine 1+ (Negative); Leukocyte Esterase Urine Negative (Negative); Nitrite Urine Negative (Negative); Protein Urine Negative (Negative); RBC Urine Automated 0-4 /hpf (0-4); Specific Gravity Urine 1.017 (1.000-1.030); Urobilinogen Urine Negative (Negative); pH Urine 5.5 (4.5-7.5)
[2021-07-22 14:54] LABS: Albumin Level 3.8 gm/dl (3.4-5.0); BUN Creatinine Ratio 14.1 (10-20); Calcium 9.9 mg/dl (8.5-10.1); Creatinine Clr Calc Pharmacy 54.5 ml/min; Est GFR (African American) 63.3 ml/min; Est GFR (Non-African American) 54.7 ml/min; Potassium 4.2 mmol/L (3.5-5.1)
[2021-07-22 14:57] LABS: Albumin Globulin Ratio 0.8 (0.9-2); Bilirubin,Total 0.8 mg/dl (0.2-1); Globulin 4.6 gm/dl (2.5-4.0); Total Protein 8.4 gm/dl (6.4-8.2)
--- NOTE | 2021-07-22 16:16 | Emergency Department Note ---
History of Present Illness General Chief complaint: Abdominal Pain Stated complaint: ABDOMINAL PAIN, REFERRED BY Time Seen by Provider: 07/22/21 14:10 Source: patient Mode of arrival: ambulatory Limitations: no limitations History of Present Illness Provider complaint: lower abd pain Onset (ago): day(s) 1 Location: abdomen Radiation: back Severity: mild Exacerbated By: + none Associated symptoms: + fever/chills; no loss of appetite or no nausea/vomiting Treatments prior to arrival: none This is a 71-year-old male presents emergency department with concern for lower abdominal pain. Patient states symptoms began yesterday, and he developed a fever last night to 100.2. He states today no fever however the pain felt worse and was radiating into his low back. He denies fevers, chills, nausea or vomiting. He states the pain feels similar to an episode of diverticulitis 6 months ago. He states he did have follow-up testing including colonoscopy. 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 Patient states with the last episode he did have an accompanying abscess and was hospitalized for 3 days before completing a course of antibiotics at home. Patient states no recent change in any additional medications, no recent change in diet. Patient states yesterday his bowel movements seemed less than normal however denies that they were black or bloody. He states today he is passing gas however has not had a bowel movement. No change in urine or difficulty urinating. Pt seen during a time of high acuity and national emergency pandemic while wearing PPE. Home Medications Medication Instructions Recorded Confirmed Type ferrous sulfate 325 mg (65 mg 325 mg PO QAM tab 10/24/19 07/22/21 History iron) tablet (Nilton-Time) multivitamin 1 tab PO QAM 01/20/21 07/22/21 History triamterene 37.5 0.5 tab PO QAM 01/20/21 07/22/21 History mg-hydrochlorothiazide 25 mg tablet rosuvastatin 5 mg tablet 5 mg PO QAM #90 tab 05/06/21 07/22/21 Rx amoxicillin 875 mg-potassium 1 tab PO BID #20 tab 07/23/21 Rx clavulanate 125 mg tablet (Augmentin) Allergies Allergy/AdvReac Type Severity Reaction Status Date / Time lisinopril Allergy Intermediate Angioedema Verified 07/22/21 14:13 amlodipine Allergy Unknown Unknown Verified 07/22/21 14:13 Past Med/Surg History Medical History Aneurysm of left renal artery pcp monitoring Broken rib left --- 2/2 fall on 02/06/21 Colonic diverticular abscess Diverticular disease History of colon polyps History of diverticulitis HTN (hypertension) Hypercholesterolemia Umbilical hernia Surgical History H/O colonoscopy (02/07/16) COLON, SIGMOID, POLYPECTOMY: 1. FRAGMENTS OF PARTIALLY CAUTERIZED, EDEMATOUS MUCOSA. 2. NO ADENOMA OR DEFINITIVE NON-ADENOMATOUSPOLYP IDENTIFIED. Case History of open reduction and internal fixation (ORIF) procedure LLE History of surgery on extremity RLE History of tooth extraction No significant past surgical history Family History Father Amyotrophic lateral sclerosis Other No family history of adverse response to anesthesia Denies family history of Ovarian cancer Prostate cancer Myocardial infarction Breast cancer Colorectal cancer Social History Smoking Status: Never smoker Second Hand Exposure: Yes (as a child); Hx Alcohol Use: Yes Alcohol type: beer Alcohol type Comment: socially Hx Substance Use: No Preferred Language: Kyrgyz Communication Ability: Effective 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 Beliefs That Will Affect Care: None marital status: Current Living Situation: Spouse current occupational status: retired current occupation: [employer] How many Children do You have: 3 Feels Safe at Home: Yes Assistive Devices: None Review of Systems A total of 10 systems reviewed and were otherwise negative All systems reviewed & are unremarkable except as noted in HPI & below Physical Exam Vital Signs Vital Signs - 24 hr 07/22/21 11:42 07/22/21 14:34 07/22/21 16:22 Temperature 36.2 C L 37.1 C Temperature Source Temporal Artery Scan Oral Pulse Rate 86 Pulse Rate [Finger] 68 72 Pulse Rhythm [Finger] Regular Regular Pulse Strength [Finger] Normal Normal Respiratory Rate 18 18 16 Respiratory Effort / Characteristics Non-Labored Spontaneous Non-Labored Spontaneous Respiratory Depth Normal Normal Respiratory Pattern Regular Regular Blood Pressure 139/88 Blood Pressure [Right Arm] 103/85 136/78 Blood Pressure Mean 105 Blood Pressure Mean [Right Arm] 91 97 Blood Pressure Position [Right Arm] Sitting Pulse Oximetry 97 97 97 Oxygen Delivery Method Room Air Room Air Room Air Sepsis Recent Fever Within 48 Hours No Sepsis New/Unexplained Change in Mental Status No Sepsis Action Taken by Nursing No Action Required GENERAL: alert, well appearing, well nourished, no distress, non-toxic EYE EXAM: normal conjunctiva, PERRL and EOM's grossly intact OROPHARYNX: no exudate, no erythema, lips, buccal mucosa, and tongue normal and mucous membranes are moist NECK: supple, no nuchal rigidity, no adenopathy, non-tender LUNGS: Clear to auscultation. Normal chest wall mechanics, no w/r/r HEART: no murmurs, S1 normal and S2 normal ABDOMEN: abdomen soft, mild suprapubic tenderness with palpation, normo-active bowel sounds, no masses, no rebound or guarding. Dull to percussion. No distention. BACK: Back is symmetrical on inspection and there is no deformity, no midline tenderness, no CVA tenderness. SKIN: no rashes and no bruising UPPER EXTREMITIES: upper extremities are grossly normal. FROM, nml pulses b/l. LOWER EXTREMITIES: No pitting edema. FROM, nml pulses b/l. NEURO EXAM: Normal sensorium, cranial nerves II-XII grossly intact, normal speech, no gross weakness of arms, no gross weakness of legs. Gross sensation intact. Course Course 165: Patient updated on results. No change in symptoms. 170: Discussed with Dr. Tillman. 1709: Discussed with Dr. Galloway, gen surg. Administered Medications Discontinued Medications Piperacillin Sod/Tazobactam Sod (Zosyn) 4.5 gm in 120 mls @ 240 mls/hr IV NOW ONE Stop: 07/22/21 17:24 Last Infusion: 07/22/21 17:44 Dose: 0 mls/hr Documented by: [id number] Admin: 07/22/21 17:12 Dose: 240 mls/hr Documented by: [id number] Potassium Chloride/Sodium Chloride (Normal Saline W/20 Meq Kcl) 20 meq in 1,000 mls @ 125 mls/hr IV .Q8H MARICRUZ Stop: 08/21/21 22:59 Last Admin: 07/23/21 07:57 Dose: 125 mls/hr Documented by: [id number] Infusion: 07/23/21 07:55 Dose: 125 mls/hr Documented by: [id number] Admin: 07/22/21 23:55 Dose: 125 mls/hr Documented by: [id number] Piperacillin Sod/Tazobactam (Sod 3.375 gm/ Dextrose) 115 mls @ 28.75 mls/hr IV Q8H MARICRUZ; Protocol Stop: 08/01/21 22:59 Last Infusion: 07/23/21 10:35 Dose: 0 mls/hr Documented by: [id number] Admin: 07/23/21 06:31 Dose: 28.8 mls/hr Documented by: [id number] Infusion: 07/23/21 03:52 Dose: 0 mls/hr Documented by: [id number] Admin: 07/22/21 23:55 Dose: 28.8 mls/hr Documented by: [id number] Ioversol (Optiray 320 100ml) 93 ml IV ONCE ONE Stop: 07/22/21 16:36 Last Admin: 07/22/21 16:35 Dose: 1 ml Documented by: [id number] Rosuvastatin Calcium (Rosuvastatin Calcium 5 Mg Tab) 5 mg PO QAM MARICRUZ Stop: 08/22/21 08:59 Last Admin: 07/23/21 11:32 Dose: Not Given Documented by: [id number] Medical Decision Making Differential Diagnosis Differential diagnoses includes but is not limited to gastritis, peptic ulcer disease, GERD, gallbladder disease, pancreatitis, small bowel obstruction, acute coronary syndrome, pericarditis, ischemic bowel, irritable bowel disease, irritable bowel syndrome, appendicitis, diverticulitis, malignancy, hernia, urinary tract infection, torsion, [/ectopic (if female)], perforation, trauma, infectious. Medical Records Attestation: I reviewed the patient's medical records. Home Medications Current Medication List: was personally reviewed by me Laboratory Data Attestation: I reviewed the patient's lab results. Result diagrams: 07/23/21 05:48 07/23/21 05:48 Lab Results 07/22/21 07/22/21 07/22/21 Range/Units 14:25 14:25 14:25 WBC 11.29 H (4.8-10.8) K/uL RBC 4.46 L (4.7-6.1) M/uL Hgb 13.1 L (14.0-18.0) g/dL Hct 39.5 L (42-52) % MCV 88.6 (80-100) fL MCH 29.4 (25-34) pg MCHC 33.2 (32-36) g/dL RDW Std Deviation 42.4 (36.4-46.3) fL RDW Coeff of Aidan 13.2 (11.5-14.5) % Plt Count 212 (130-400) K/uL MPV 10.4 (7.4-10.4) fL Immature Gran % (Auto) 0.3 % Neut % (Auto) 61.7 % Lymph % (Auto) 27.7 % [place] % (Auto) 9.0 % Eos % (Auto) 1.0 % Baso % (Auto) 0.3 % Neut # (Auto) 6.97 H (1.4-6.5) K/uL Lymph # (Auto) 3.13 (1.2-3.4) K/uL Mes[place] # (Auto) 1.02 H (0.11-0.59) K/uL Eos # (Auto) 0.11 (0-0.5) K/uL Baso # (Auto) 0.03 (0-0.2) K/uL Immature Gran # (Auto) 0.03 H (0.00-0.02) K/uL Sodium 137 (136-145) mmol/L Potassium 4.2 (3.5-5.1) mmol/L Chloride 104 (98-107) mmol/L Carbon Dioxide 26 (21-32) mmol/L Anion Gap 6.0 (3-11) BUN 19 H (7-18) mg/dl Creatinine 1.32 (0.6-1.4) mg/dl Est Cr Clr Drug Dosing 54.5 ml/min Est GFR ( Amer) 63.3 ml/min Est GFR (Non-Af Amer) 54.7 ml/min BUN/Creatinine Ratio 14.1 (10-20) Glucose 88 (70-99) mg/dl Calcium 9.9 (8.5-10.1) mg/dl Total Bilirubin 0.8 (0.2-1) mg/dl AST 20 (15-37) U/L ALT 20 (12-78) U/L Alkaline Phosphatase 53 (45-117) U/L Total Protein 8.4 H (6.4-8.2) gm/dl Albumin 3.8 (3.4-5.0) gm/dl Globulin 4.6 H (2.5-4.0) gm/dl Albumin/Globulin Ratio 0.8 L (0.9-2) Lipase 157 (73-393) U/L Urine Color Yellow Urine Appearance Clear (Clear) Urine pH 5.5 (4.5-7.5) Ur Specific [place] 1.017 (1.000-1.030) Urine Protein Negative (Negative) Urine Glucose (UA) Negative (Negative) Urine Ketones 1+ H (Negative) Urine Blood Trace H (Negative) Urine Nitrite Negative (Negative) Urine Bilirubin Negative (Negative) Urine Urobilinogen Negative (Negative) Ur Leukocyte Esterase Negative (Negative) Urine WBC (Auto) 1-5 (0-5) /hpf Urine RBC (Auto) 0-4 (0-4) /hpf U Hyaline Cast (Auto) 1-5 (0-5) /lpf U Epithel Cells (Auto) 0-5 (0-5) /lpf Urine Bacteria (Auto) Negative (Negative) COVID-19 Eval Order SARS-CoV-2 (PCR) (Negative) 07/22/21 07/22/21 Range/Units 17:18 17:18 WBC (4.8-10.8) K/uL RBC (4.7-6.1) M/uL Hgb (14.0-18.0) g/dL Hct (42-52) % MCV (80-100) fL MCH (25-34) pg MCHC (32-36) g/dL RDW Std Deviation (36.4-46.3) fL RDW Coeff of Aidan (11.5-14.5) % Plt Count (130-400) K/uL MPV (7.4-10.4) fL Immature Gran % (Auto) % Neut % (Auto) % Lymph % (Auto) % Mes[place] % (Auto) % Eos % (Auto) % Baso % (Auto) % Neut # (Auto) (1.4-6.5) K/uL Lymph # (Auto) (1.2-3.4) K/uL [place] # (Auto) (0.11-0.59) K/uL Eos # (Auto) (0-0.5) K/uL Baso # (Auto) (0-0.2) K/uL Immature Gran # (Auto) (0.00-0.02) K/uL Sodium (136-145) mmol/L Potassium (3.5-5.1) mmol/L Chloride (98-107) mmol/L Carbon Dioxide (21-32) mmol/L Anion Gap (3-11) BUN (7-18) mg/dl Creatinine (0.6-1.4) mg/dl Est Cr Clr Drug Dosing ml/min Est GFR ( Amer) ml/min Est GFR (Non-Af Amer) ml/min BUN/Creatinine Ratio (10-20) Glucose (70-99) mg/dl Calcium (8.5-10.1) mg/dl Total Bilirubin (0.2-1) mg/dl AST (15-37) U/L ALT (12-78) U/L Alkaline Phosphatase (45-117) U/L Total Protein (6.4-8.2) gm/dl Albumin (3.4-5.0) gm/dl Globulin (2.5-4.0) gm/dl Albumin/Globulin Ratio (0.9-2) Lipase (73-393) U/L Urine Color Urine Appearance (Clear) Urine pH (4.5-7.5) Ur Specific [place] (1.000-1.030) Urine Protein (Negative) Urine Glucose (UA) (Negative) Urine Ketones (Negative) Urine Blood (Negative) Urine Nitrite (Negative) Urine Bilirubin (Negative) Urine Urobilinogen (Negative) Ur Leukocyte Esterase (Negative) Urine WBC (Auto) (0-5) /hpf Urine RBC (Auto) (0-4) /hpf U Hyaline Cast (Auto) (0-5) /lpf U Epithel Cells (Auto) (0-5) /lpf Urine Bacteria (Auto) (Negative) COVID-19 Eval Order Covid19 at [facility] SARS-CoV-2 (PCR) NEGATIVE (Negative) Imaging Data Radiologist's Impression: Abdomen/Pelvis CT 07/22/21 15:39 CT abd pelvis IV con only CLINICAL HISTORY: lower abd pain, hx diverticulitis TECHNIQUE: Helical axial images of the abdomen and pelvis were obtained and displayed. Automated dose lowering techniques and/or adjustment according to patient size were utilized for this exam. This exam was performed with intravenous contrast. COMPARISON: Comparison is made to CT abdomen and pelvis 06/29/2021 FINDINGS: Lower chest: Multiple tiny pulmonary nodules are seen in the lower lungs, largest measures 6 mm and is pleural-based in the left lower lung (series 3 image 53). There is a region of pleural scarring or atelectasis at the left lung base. Findings are similar in appearance to prior exam. Liver: Unremarkable. No focal lesions are seen. Gallbladder and biliary tree: No calcified gallstones. Normal caliber wall. No intra- or extrahepatic biliary ductal dilation. Pancreas: Unremarkable, no focal lesions. Spleen: Unremarkable. Adrenals: Unremarkable. Kidneys and ureters: Stable left renal cyst. Bladder: Bladder is under distended and thickened which may be reactive. Reproductive organs: Prostatic calcifications are seen which may represent prior hemorrhage or granulomatous disease. Bowel: Wall thickening and fat stranding is seen in the sigmoid colon. A few foci of air appear to be extraluminal. No drainable fluid collection is seen. The appendix is normal. A hiatal hernia is seen. Lymph nodes Retroperitoneal: Unremarkable. Mesenteric: Unremarkable. Pelvic: Unremarkable. Peritoneum: Normal Vessels: Atherosclerotic calcifications are seen. Abdominal wall: A fat-containing umbilical hernia is seen. Bones: Degenerative changes in the visualized spine. IMPRESSION: 1. Findings are compatible with sigmoid diverticulitis with likely perforation. No abscess is seen. 2. Additional findings as above. ACT 112: Negative or not required by law. Electronically signed by: Gaurav Powell M.D. 07/22/2021 4:48 PM MDM Narrative This is a well-appearing 71-year-old male who presents due to concern for recu rrent lower abdominal pain which feels similar to prior episode of diverticulitis. Labs drawn and sent and patient sent for CT imaging as a precaution given prior episode as it resulted in hospitalization due to accompanying abscess. Unfortunately, patient found to have acute diverticulitis with evidence of microperforation. Patient remained well-appearing and hemodynamically stable throughout. Case discussed with hospitalist for additional evaluation and management. Patient was given IV Zosyn. Per hospitalist request, general surgery was consulted and I updated Dr. Galloway on this case. Patient and made aware of all results and plan at this time, verbalized understanding, and are in agreement. An order was placed for continuous cardiac monitoring. The monitor shows a rate of _70_ with _normal sinus_ rhythm. Impression & Plan Abdominal pain, Diverticulitis, Perforation bowel Discharge Plan Visit Data Chief Complaint: Abdominal Pain Stated Complaint: ABDOMINAL PAIN, REFERRED BY ED Provider: Leslee Coelho Discharge Problem: Abdominal pain, Diverticulitis, Perforation bowel Patient Disposition: Admitted As Inpatient Condition: Good Discharge Instructions Interventions: ED Discharge Assessment Last Done: 07/22/21 20:54 Discharge Problem: Abdominal pain Qualifiers: Abdominal location: lower abdomen, unspecified Qualified Code(s): R10.30 - Lower abdominal pain, unspecified
[2021-07-22] MEDS ORDERED: OPTIRAY 320 100ml IV ONE (16:35)
--- NOTE | 2021-07-22 16:49 | CT Scan Report ---
CT abd pelvis IV con only CLINICAL HISTORY: lower abd pain, hx diverticulitis TECHNIQUE: Helical axial images of the abdomen and pelvis were obtained and displayed. Automated dose lowering techniques and/or adjustment according to patient size were utilized for this exam. This e xam was performed with intravenous contrast. COMPARISON: Comparison is made to CT abdomen and pelvis 06/29/2021 FINDINGS: Lower chest: Multiple tiny pulmonary nodules are seen in the lower lungs, largest measures 6 mm and is pleural-based in the left lower lung (series 3 image 53). There is a region of pleural scarring or atelectasis at the left lung base. Findings are similar in appearance to prior exam. Liver: Unremarkable. No focal lesions are seen. Gallbladder and biliary tree: No calcified gallstones. Normal caliber wall. No intra- or extrahepatic biliary ductal dilation. Pancreas: Unremarkable, no focal lesions. Spleen: Unremarkable. Adrenals: Unremarkable. Kidneys and ureters: Stable left renal cyst. Bladder: Bladder is under distended and thickened which may be reactive. Reproductive organs: Prostatic calcifications are seen which may represent prior hemorrhage or granul omatous disease. Bowel: Wall thickening and fat stranding is seen in the sigmoid colon. A few foci of air appear to be extraluminal. No drainable fluid collection is seen. The appendix is normal. A hiatal hernia is seen . Lymph nodes Retroperitoneal: Unremarkable. Mesenteric: Unremarkable. Pelvic: Unremarkable. Peritoneum: Normal Vessels: Atherosclerotic calcifications are seen. Abdominal wall: A fat-containing umbilical hernia is seen. Bones: Degenerative changes in the visualized spine. IMPRESSION: 1. Findings are compatible with sigmoid diverticulitis with likely perforation. No abscess is seen. 2. Additional findings as above. ACT 112: Negative or not required by law. Electronically signed by: Gaurav Powell M.D. 07/22/2021 4:48 PM
[2021-07-22] MEDS ORDERED: PIPERACILL/TAZOBAC CONSULT ACTIVE PRN ×2 (16:55→21:56)
[2021-07-22] MEDS ORDERED: PIPERACILLIN/TAZOBACTAM 4.5 GM/120 ML BAG IV ONE (16:55)
--- NOTE | 2021-07-22 17:11 | History & Physical Report ---
Date of Service July 22, 2021 Assessment & Plan (1) Diverticulitis: Plan: Diverticulitis with microperforation, without abscess Leukocytosis to 11.29 Hemoglobin 13.1 Potassium normal Creatinine at baseline, 1.32 admission Bilirubin normal, AST/ALT normal, alk phos normal Lipase normal UA does not appear infected CTA/P: Sigmoid diverticulitis with likely perforation, no abscess. Received empiric Zosyn in ER, continue Zosyn Case was discussed with Dr. Galloway/Dr. Coelho prior to admission. Patient clinically stable and appears well, no signs of acute abdomen and suggestive of microperforation without abscess on CT. Recommended to admit to medicine with surgical consult and observation while on antibiotics at this time. (2) Perforation bowel: Plan: See above, microperforation Surgery consulted, follow clinically at this time (3) Aneurysm of left renal artery: Plan: Stable, no acute (4) Pulmonary nodules: Plan: intervention a nodule appreciated on CT, 6 mm, patient was not aware he had pulmonary nodules. Pulmonary nodule clinic follow-up No acute intervention (5) HTN (hypertension): Plan: Antihypertensives held pending surgical evaluation Blood pressure adequate on exam (6) Hypercholesterolemia: Plan: Continue statin Plan: DVT prophylaxis: SCDs Diet: N.p.o. Disposition: Medical telemetry CODE STATUS: History of Present Illness Chief Complaint: Abdominal pain Primary Care Provider: Zhou Brown MD Xiang Kenyon is a 71-year-old male with a past medical history of leukopenia, diverticular disease with perforation and abscess, left renal artery aneurysm, pulmonary nodules, bilateral inguinal hernias, hypertension, and hypercholesterolemia who presented to the emergency department with concern for low abdominal pain. Patient's pain began 1 day ago and was associated with fever. Pain worsened into today. Pain feels similar to his prior episodes of diverticulitis. Pain is midline in his low abdomen, crampy in quality, and radiates slightly to the back. He feels like his pain is "not bad/10 "at bedside assessment, reports is more concerned that the episodes felt similar to his prior diverticulitis. Urination improves his pain. BMs 2x today, no pain with BM. Brown, no blood, nothing black. Takes iron for anemia reports sometimes stools are darker, but denies melena. Reports otherwise he feels like he is doing very well, appetite is good, and has not had nausea or vomiting. Feels his belly is not tender to the touch. Sitting up in chair pleasant, comfortable during exam. Reports is aware he has a systolic heart murmur, denies history of cardiac disease. Case was discussed with Dr. Galloway/Dr. Coelho prior to admission. Patient clinically stable and appears well, no signs of acute abdomen and suggestive of microperforation without abscess on CT. Recommended to admit to medicine with surgical consult and observation while on antibiotics at this time. Medical History: Reviewed Medications: Reviewed. Last took today. Surgical History: Reviewed Allergies: Reviewed Social History: Denies tobacco use, denies marijuana use, denies recreational drug use, rare social alcohol use Code Status: Full code Allergies Allergy/AdvReac Type Severity Reaction Status Date / Time lisinopril Allergy Intermediate Angioedema Verified 07/22/21 14:13 amlodipine Allergy Unknown Unknown Verified 07/22/21 14:13 Home Medications Medication Instructions Recorded Confirmed Type ferrous sulfate 325 mg (65 mg 325 mg PO QAM tab 10/24/19 07/22/21 History iron) tablet (Nilton-Time) multivitamin 1 tab PO QAM 01/20/21 07/22/21 History triamterene 37.5 0.5 tab PO QAM 01/20/21 07/22/21 History mg-hydrochlorothiazide 25 mg tablet rosuvastatin 5 mg tablet 5 mg PO QAM #90 tab 05/06/21 07/22/21 Rx Past Med/Surg History Medical History Aneurysm of left renal artery pcp monitoring Broken rib left --- 2/2 fall on 02/06/21 Colonic diverticular abscess Diverticular disease History of colon polyps History of diverticulitis HTN (hypertension) Hypercholesterolemia Umbilical hernia Surgical History H/O colonoscopy (02/07/16) COLON, SIGMOID, POLYPECTOMY: 1. FRAGMENTS OF PARTIALLY CAUTERIZED, EDEMATOUS MUCOSA. 2. NO ADENOMA OR DEFINITIVE NON-ADENOMATOUSPOLYP IDENTIFIED. Dr. Chavez History of open reduction and internal fixation (ORIF) procedure LLE History of surgery on extremity RLE History of tooth extraction No significant past surgical history Family History Father Amyotrophic lateral sclerosis Other No family history of adverse response to anesthesia Denies family history of Ovarian cancer Prostate cancer Myocardial infarction Breast cancer Colorectal cancer Social History Smoking Status: Never smoker Second Hand Exposure: Yes (as a child); Hx Alcohol Use: Yes Alcohol type: beer Alcohol type Comment: socially Hx Substance Use: No Preferred Language: Thai Communication Ability: Effective 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 NAD. Cooperative. HEENT: Atraumatic, normocephalic. Visual acuity grossly intact, hearing grossly intact. Pupils equal and responsive to light. Pulm: CTAB A&P. -wheezes, -rales, -rhonchi. Symmetrical chest rise. No increase work of breathing. No respiratory distress. Cardiac: RRR, systolic murmur appreciated. Radial pulses intact and symmetrical. Abdominal: Trace midline infraumbilical tenderness, otherwise nontender, nondistended, soft. BS present. No rebound tenderness. Extremities: Moving all extremities equally, extremities warm and dry. Sensation to soft touch and temperature intact in hands and feet without asymmetry. Radial pulses intact and symmetrical. Cap refill brisk. Electrical Supervisor strength, elbow flexion/extension, hip flexion, ankle dorsiflexion/plantar flexion 5/5. Patient walks between bed and sitting at bedside chair without difficulty and no pain. Results & Data Results & Data ([facility]) Vital Signs (Past 12 Hours) Vital Signs Temp Pulse Pulse Resp BP BP Pulse Ox 07/22/21 16:22 72 16 136/78 97 07/22/21 14:34 37.1 C 68 18 103/85 97 07/22/21 11:42 36.2 C L 86 18 139/88 97 PG Care Time/CCT Total # of Minutes Spent Total Time Spent with Patient: Total time spent is greater than 50% in coordination of care (as documented) at patient's floor/unit and/or counseling patient: Coding Level of Care Code 05007 Initial Inpt Care Lvl 3 Diagnoses Diverticulitis K57.92 Perforation bowel K63.1 Aneurysm of left renal artery I72.2 Pulmonary nodules R91.8 HTN (hypertension) I10 Hypertension type: essential hypertension Hypercholesterolemia E78.00 (1) HTN (hypertension) Hypertension type: essential hypertension Qualified Code(s): I10 - Essential (primary) hypertension
--- NOTE | 2021-07-22 20:30 | Surgery Consultation ---
Date of Consultation July 22, 2021 Assessment & Plan (1) Diverticulitis: 71-year-old gentleman with diverticulitis with microperforation. His white blood cell count is 11. There is no free perforation or abscess. He will be admitted to the hospitalist service. He will be placed on IV antibiotics. We will observe him. No surgical intervention is required at this time. We will follow along. History of Present Illness Reason for Consultation: Diverticulitis with microperforation Requesting Physician: Honorio Tillman MD Attending Physician: Honorio Tillman MD History of Present Illness 71-year-old gentleman presents to the emergency department with lower abdominal pain for the past 36 hours. He has had one episode of diverticulitis approximately 6 months ago. He states he started to feel pain yesterday morning in the lower abdomen. He did have some feverish feelings and chills. He denies nausea vomiting. He denies change in bowel habits. He was eating up until yesterday. He denies any other complaints. Allergies Allergy/AdvReac Type Severity Reaction Status Date / Time lisinopril Allergy Intermediate Angioedema Verified 07/22/21 14:13 amlodipine Allergy Unknown Unknown Verified 07/22/21 14:13 Home Medications Medication Instructions Recorded Confirmed Type ferrous sulfate 325 mg (65 mg 325 mg PO QAM tab 10/24/19 07/22/21 History iron) tablet (Nilton-Time) multivitamin 1 tab PO QAM 01/20/21 07/22/21 History triamterene 37.5 0.5 tab PO QAM 01/20/21 07/22/21 History mg-hydrochlorothiazide 25 mg tablet rosuvastatin 5 mg tablet 5 mg PO QAM #90 tab 05/06/21 07/22/21 Rx Patient History Medical History Aneurysm of left renal artery pcp monitoring Broken rib left --- 2/2 fall on 02/06/21 Colonic diverticular abscess Diverticular disease History of colon polyps History of diverticulitis HTN (hypertension) Hypercholesterolemia Umbilical hernia Surgical History H/O colonoscopy (02/07/16) COLON, SIGMOID, POLYPECTOMY: 1. FRAGMENTS OF PARTIALLY CAUTERIZED, EDEMATOUS MUCOSA. 2. NO ADENOMA OR DEFINITIVE NON-ADENOMATOUSPOLYP IDENTIFIED. Case History of open reduction and internal fixation (ORIF) procedure LLE History of surgery on extremity RLE History of tooth extraction No significant past surgical history Family History Father Amyotrophic lateral sclerosis Other No family history of adverse response to anesthesia Denies family history of Ovarian cancer Prostate cancer Myocardial infarction Breast cancer Colorectal cancer Social History Smoking Status: Never smoker Second Hand Exposure: Yes (as a child); Hx Alcohol Use: Yes Alcohol type: beer Alcohol type Comment: socially Hx Substance Use: No Preferred Language: Icelandic Communication Ability: Effective 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 Beliefs That Will Affect Care: None marital status: Current Living Situation: Spouse current occupational status: retired current occupation: [employer] How many Children do You have: 3 Feels Safe at Home: Yes Assistive Devices: Glasses Review of Systems Review of Systems: All systems reviewed & are unremarkable except as noted in HPI & below Physical Exam Constitutional: WD/WN, vitals as above Eyes: PERRL, conjunctivae normal, anicteric sclerae Neck: trachea midline, no thyromegaly Respiratory: normal respiratory effort; no respiratory distress and no labored breathing Cardiovascular: Rate/Rhythm: regular rate and regular rhythm Gastrointestinal (Abdomen): Inspection/Auscultation: abdomen normal to inspection; abdomen not distended and no abdominal surgical scar Percussion/Palpation: + abdomen tender (Lower abdomen) and abdomen soft; no guarding and abdomen not rigid Musculoskeletal: Extremities: no cyanosis and no clubbing Skin: no rashes, warm and dry Psychiatric: A+Ox3, euthymic affect Results & Data ([facility]) Vital Signs (Past 12 Hours) Vital Signs Temp Pulse Pulse Resp BP BP Pulse Ox 07/22/21 18:00 79 16 127/78 96 07/22/21 16:22 72 16 136/78 97 07/22/21 14:34 37.1 C 68 18 103/85 97 07/22/21 11:42 36.2 C L 86 18 139/88 97 Laboratory Results 07/22/21 07/22/21 07/22/21 Range/Units 17:18 17:18 14:25 WBC (4.8-10.8) K/uL RBC (4.7-6.1) M/uL Hgb (14.0-18.0) g/dL Hct (42-52) % MCV (80-100) fL MCH (25-34) pg MCHC (32-36) g/dL RDW Std Deviation (36.4-46.3) fL RDW Coeff of Aidan (11.5-14.5) % Plt Count (130-400) K/uL MPV (7.4-10.4) fL Immature Gran % (Auto) % Neut % (Auto) % Lymph % (Auto) % [place] % (Auto) % Eos % (Auto) % Baso % (Auto) % Neut # (Auto) (1.4-6.5) K/uL Lymph # (Auto) (1.2-3.4) K/uL [place] # (Auto) (0.11-0.59) K/uL Eos # (Auto) (0-0.5) K/uL Baso # (Auto) (0-0.2) K/uL Immature Gran # (Auto) (0.00-0.02) K/uL Sodium (136-145) mmol/L Potassium (3.5-5.1) mmol/L Chloride (98-107) mmol/L Carbon Dioxide (21-32) mmol/L Anion Gap (3-11) BUN (7-18) mg/dl Creatinine (0.6-1.4) mg/dl Est Cr Clr Drug Dosing ml/min Est GFR ( Amer) ml/min Est GFR (Non-Af Amer) ml/min BUN/Creatinine Ratio (10-20) Glucose (70-99) mg/dl Calcium (8.5-10.1) mg/dl Total Bilirubin (0.2-1) mg/dl AST (15-37) U/L ALT (12-78) U/L Alkaline Phosphatase (45-117) U/L Total Protein (6.4-8.2) gm/dl Albumin (3.4-5.0) gm/dl Globulin (2.5-4.0) gm/dl Albumin/Globulin Ratio (0.9-2) Lipase (73-393) U/L Urine Color Yellow Urine Appearance Clear (Clear) Urine pH 5.5 (4.5-7.5) Ur Specific [place] 1.017 (1.000-1.030) Urine Protein Negative (Negative) Urine Glucose (UA) Negative (Negative) Urine Ketones 1+ H (Negative) Urine Blood Trace H (Negative) Urine Nitrite Negative (Negative) Urine Bilirubin Negative (Negative) Urine Urobilinogen Negative (Negative) Ur Leukocyte Esterase Negative (Negative) Urine WBC (Auto) 1-5 (0-5) /hpf Urine RBC (Auto) 0-4 (0-4) /hpf U Hyaline Cast (Auto) 1-5 (0-5) /lpf U Epithel Cells (Auto) 0-5 (0-5) /lpf Urine Bacteria (Auto) Negative (Negative) COVID-19 Eval Order Covid19 at [facility] SARS-CoV-2 (PCR) NEGATIVE (Negative) 07/22/21 07/22/21 Range/Units 14:25 14:25 WBC 11.29 H (4.8-10.8) K/uL RBC 4.46 L (4.7-6.1) M/uL Hgb 13.1 L (14.0-18.0) g/dL Hct 39.5 L (42-52) % MCV 88.6 (80-100) fL MCH 29.4 (25-34) pg MCHC 33.2 (32-36) g/dL RDW Std Deviation 42.4 (36.4-46.3) fL RDW Coeff of Aidan 13.2 (11.5-14.5) % Plt Count 212 (130-400) K/uL MPV 10.4 (7.4-10.4) fL Immature Gran % (Auto) 0.3 % Neut % (Auto) 61.7 % Lymph % (Auto) 27.7 % [place] % (Auto) 9.0 % Eos % (Auto) 1.0 % Baso % (Auto) 0.3 % Neut # (Auto) 6.97 H (1.4-6.5) K/uL Lymph # (Auto) 3.13 (1.2-3.4) K/uL [place] # (Auto) 1.02 H (0.11-0.59) K/uL Eos # (Auto) 0.11 (0-0.5) K/uL Baso # (Auto) 0.03 (0-0.2) K/uL Immature Gran # (Auto) 0.03 H (0.00-0.02) K/uL Sodium 137 (136-145) mmol/L Potassium 4.2 (3.5-5.1) mmol/L Chloride 104 (98-107) mmol/L Carbon Dioxide 26 (21-32) mmol/L Anion Gap 6.0 (3-11) BUN 19 H (7-18) mg/dl Creatinine 1.32 (0.6-1.4) mg/dl Est Cr Clr Drug Dosing 54.5 ml/min Est GFR ( Amer) 63.3 ml/min Est GFR (Non-Af Amer) 54.7 ml/min BUN/Creatinine Ratio 14.1 (10-20) Glucose 88 (70-99) mg/dl Calcium 9.9 (8.5-10.1) mg/dl Total Bilirubin 0.8 (0.2-1) mg/dl AST 20 (15-37) U/L ALT 20 (12-78) U/L Alkaline Phosphatase 53 (45-117) U/L Total Protein 8.4 H (6.4-8.2) gm/dl Albumin 3.8 (3.4-5.0) gm/dl Globulin 4.6 H (2.5-4.0) gm/dl Albumin/Globulin Ratio 0.8 L (0.9-2) Lipase 157 (73-393) U/L Urine Color Urine Appearance (Clear) Urine pH (4.5-7.5) Ur Specific [place] (1.000-1.030) Urine Protein (Negative) Urine Glucose (UA) (Negative) Urine Ketones (Negative) Urine Blood (Negative) Urine Nitrite (Negative) Urine Bilirubin (Negative) Urine Urobilinogen (Negative) Ur Leukocyte Esterase (Negative) Urine WBC (Auto) (0-5) /hpf Urine RBC (Auto) (0-4) /hpf U Hyaline Cast (Auto) (0-5) /lpf U Epithel Cells (Auto) (0-5) /lpf Urine Bacteria (Auto) (Negative) COVID-19 Eval Order SARS-CoV-2 (PCR) (Negative) Diagnostic Findings CT abd pelvis IV con only CLINICAL HISTORY: lower abd pain, hx diverticulitis TECHNIQUE: Helical axial images of the abdomen and pelvis were obtained and displayed. Automated dose lowering techniques and/or adjustment according to patient size were utilized for this exam. This exam was performed with intravenous contrast. COMPARISON: Comparison is made to CT abdomen and pelvis 06/29/2021 FINDINGS: Lower chest: Multiple tiny pulmonary nodules are seen in the lower lungs, largest measures 6 mm and is pleural-based in the left lower lung (series 3 image 53). There is a region of pleural scarring or atelectasis at the left lung base. Findings are similar in appearance to prior exam. Liver: Unremarkable. No focal lesions are seen. Gallbladder and biliary tree: No calcified gallstones. Normal caliber wall. No intra- or extrahepatic biliary ductal dilation. Pancreas: Unremarkable, no focal lesions. Spleen: Unremarkable. Adrenals: Unremarkable. Kidneys and ureters: Stable left renal cyst. Bladder: Bladder is under distended and thickened which may be reactive. Reproductive organs: Prostatic calcifications are seen which may represent prior hemorrhage or granulomatous disease. Bowel: Wall thickening and fat stranding is seen in the sigmoid colon. A few foci of air appear to be extraluminal. No drainable fluid collection is seen. The appendix is normal. A hiatal hernia is seen. Lymph nodes Retroperitoneal: Unremarkable. Mesenteric: Unremarkable. Pelvic: Unremarkable. Peritoneum: Normal Vessels: Atherosclerotic calcifications are seen. Abdominal wall: A fat-containing umbilical hernia is seen. Bones: Degenerative changes in the visualized spine. IMPRESSION: 1. Findings are compatible with sigmoid diverticulitis with likely perforation. No abscess is seen. 2. Additional findings as above.
[2021-07-22] MEDS ORDERED: ONDANSETRON INJ 2 MG/ML 2 ML VIAL IV PRN (21:56)
[2021-07-22] MEDS ORDERED: ACETAMINOPHEN 325 MG TAB PO PRN (21:56)
[2021-07-22] MEDS: PIPERACILLIN/TAZOBACTAM 3.375 GM in DEXTROSE 5% 100 ML IV SCH (23:55)
[2021-07-22] MEDS: NSS + 20MEQ KCL 20 MEQ/1,000 ML BAG IV SCH (23:55)
[2021-07-23 06:14] LABS: Basophils # (auto) 0.02 K/uL (0-0.2); Basophils % (auto) 0.2 %; Eosinophils # (auto) 0.15 K/uL (0-0.5); Eosinophils % (auto) 1.5 %; Hemoglobin 12.3 g/dL (14.0-18.0); Immature Granulocytes # (auto) 0.02 K/uL (0.00-0.02); Immature Granulocytes % (auto) 0.2 %; Lymphocytes # (auto) 2.25 K/uL (1.2-3.4); Lymphocytes % (auto) 22.3 %; Mean Corpuscular Hemoglobin 29.6 pg (25-34); Mean Corpuscular Hgb Conc 33.2 g/dL (32-36); Mean Corpuscular Volume 89.2 fL (80-100); Mean Platelet Volume 10.5 fL (7.4-10.4); Monocytes # (auto) 0.82 K/uL (0.11-0.59); Monocytes % (auto) 8.1 %; Neutrophils # (auto) 6.81 K/uL (1.4-6.5); Neutrophils % (auto) 67.7 %; Platelet Count 193 K/uL (130-400); RDW Coefficient of Variation 13.3 % (11.5-14.5); RDW Standard Deviation 43.3 fL (36.4-46.3); Red Blood Count 4.15 M/uL (4.7-6.1); White Blood Count 10.07 K/uL (4.8-10.8)
[2021-07-23] MEDS: PIPERACILLIN/TAZOBACTAM 3.375 GM in DEXTROSE 5% 100 ML IV SCH (06:31)
[2021-07-23 06:46] LABS: Albumin Level 3.1 gm/dl (3.4-5.0); BUN Creatinine Ratio 19.4 (10-20); Creatinine Clr Calc Pharmacy 56.7 ml/min; Est GFR (African American) 66.4 ml/min; Est GFR (Non-African American) 57.3 ml/min; Potassium 4.2 mmol/L (3.5-5.1)
[2021-07-23 06:48] LABS: Albumin Globulin Ratio 0.7 (0.9-2); Globulin 4.3 gm/dl (2.5-4.0); Total Protein 7.4 gm/dl (6.4-8.2)
--- NOTE | 2021-07-23 07:36 | Surgery Progress Note ---
Date of Service July 23, 2021 Assessment & Plan (1) Diverticulitis: Plan: 71-year-old gentleman with diverticulitis with microperforation. He is doing quite well. He may be switched to oral antibiotics, and discharged later this morning. We will follow up with him in clinic as an outpatient. Admission and Anticipated Discharge Date Admission Date: July 22, 2021 Subjective Feeling significantly better this morning. Denies pain. Denies nausea or vomiting. Tolerating his diet. No fevers. Physical Exam Constitutional: WD/WN, vitals as above Eyes: PERRL, conjunctivae normal, anicteric sclerae Neck: trachea midline, no thyromegaly Gastrointestinal (Abdomen): Inspection/Auscultation: abdomen normal to inspection; abdomen not distended and no abdominal surgical scar Percussion/Palpation: + abdomen tender (Lower abdomen) and abdomen soft; no guarding and abdomen not rigid Skin: no rashes, warm and dry Psychiatric: A+Ox3, euthymic affect Results & Data ([facility]) Vital Signs (Past 12 Hours) Vital Signs Temp Pulse Pulse Resp BP BP BP 07/23/21 07:21 80 07/23/21 03:00 36.8 C 77 18 104/62 07/23/21 02:00 78 07/22/21 21:56 79 16 127/78 07/22/21 20:54 79 16 127/78 07/22/21 20:00 68 16 127/79 Pulse Ox Pulse Ox 07/23/21 07:21 07/23/21 03:00 95 07/23/21 02:00 07/22/21 21:56 96 96 07/22/21 20:54 96 07/22/21 20:00 96
[2021-07-23] MEDS: NSS + 20MEQ KCL 20 MEQ/1,000 ML BAG IV SCH (07:57)
[2021-07-23] MEDS ORDERED: ROSUVASTATIN CALCIUM 5 MG TAB PO SCH (09:00)
--- NOTE | 2021-07-23 11:14 | Discharge Summary ---
Date of Service July 23, 2021 Admission HPI Per Admitting Provider Xiang Kenyon is a 71-year-old male with a past medical history of leukopenia, diverticular disease with perforation and abscess, left renal artery aneurysm, pulmonary nodules, bilateral inguinal hernias, hypertension, and hypercholesterolemia who presented to the emergency department with concern for low abdominal pain. Patient's pain began 1 day ago and was associated with fever. Pain worsened into today. Pain feels similar to his prior episodes of diverticulitis. Pain is midline in his low abdomen, crampy in quality, and radiates slightly to the back. He feels like his pain is "not bad/10 "at bedside assessment, reports is more concerned that the episodes felt similar to his prior diverticulitis. Urination improves his pain. BMs 2x today, no pain with BM. Brown, no blood, nothing black. Takes iron for anemia reports sometimes stools are darker, but denies melena. Reports otherwise he feels like he is doing very well, appetite is good, and has not had nausea or vomiting. Feels his belly is not tender to the touch. Sitting up in chair pleasant, comfortable during exam. Reports is aware he has a systolic heart murmur, denies history of cardiac disease. Case was discussed with Dr. Galloway/Dr. Coelho prior to admission. Patient clinically stable and appears well, no signs of acute abdomen and suggestive of microperforation without abscess on CT. Recommended to admit to medicine with s urgical consult and observation while on antibiotics at this time. Medical History: Reviewed Medications: Reviewed. Last took today. Surgical History: Reviewed Allergies: Reviewed Social History: Denies tobacco use, denies marijuana use, denies recreational drug use, rare social alcohol use Code Status: Full code Principal Diagnosis Diverticulitis Discharge Exam General: well developed, well nourished, no acute distress, comfortable Neck: supple, trachea midline, normal thyroid Lungs: clear to auscultation bilaterally, normal respiratory effort, no accessory muscle use, no distress Heart: regular S1 and S2, no murmur, peripheral pulses normal, capillary refill normal, no edema Abdomen: soft, NT, ND, + BS, no hepatomegaly, normal to percussion Extremities: normal in appearance, no cyanosis, no petechiae, strength is 5/5 bilaterally Neuro: awake, cooperative, moves all extremities, no focal motor deficits, CN II-XII intact, sensation in extremities intact, normal speech Skin: warm, dry, no rash, normal turgor Psych: Awake, alert oriented x 3, euthymic affect Discharge Data Allergies Allergy/AdvReac Type Severity Reaction Status Date / Time lisinopril Allergy Intermediate Angioedema Verified 07/22/21 14:13 amlodipine Allergy Unknown Unknown Verified 07/22/21 14:13 Consultations 07/22/21 17:03 ED Decision to Admit Stat 07/22/21 21:56 Consult General Surgery Routine Ordered Studies 07/22/21 15:39 CT abd pelvis IV con only Stat Hospital Course (1) Diverticulitis: Diverticulitis with microperforation, without abscess Leukocytosis 11k, down to 10k today CTA/P: Sigmoid diverticulitis with likely microperforation, no abscess. treated with Zosyn IV while here no pain today, tolerating liquids appreciate surgical note, he is stable for discharge and PCP follow up this is his 2nd bout of diverticulitis, first bout was 6 months ago he did have a colonoscopy 2 months after that bout I discussed that this being his 2nd bout in a year, would be good to follow up with general surgery, may want to consider elective colectomy of the affected area will discharge home on Augmentin BID x 10 days, follow up with PCP low fiber diet for 2-3 weeks (2) Perforation bowel: See above, microperforation Surgery consulted, no indication for surgery, getting better would refer to surgery outpatient once recovered (3) Aneurysm of left renal artery: Stable, no acute (4) Pulmonary nodules: nodule appreciated on CT, 6 mm, patient was not aware he had pulmonary nodules. Pulmonary nodule clinic follow-up No acute intervention, would recommend repeat CT chest outpatient per protocol, 3-6 months (5) HTN (hypertension): Blood pressure adequate on exam (6) Hypercholesterolemia: Continue statin DVT prophylaxis: SCDs Diet: N.p.o. Disposition: Medical telemetry CODE STATUS: Total Time Total Time Spent Total Time Spent (In Minutes): 20 Total Time Includes: Examination of the Patient, Discharge Planning, Medication Reconciliation and Communication With Other Providers Discharge Plan Discharge Items Patient Disposition: Home - Self-Care Reason For Visit: DIVERTICULITIS WITH PERFORATION/MICROPERFORATION Discharge Diagnosis: Diverticulitis Condition on Discharge: Good Goals: complete course of Augmentin stay well nourished, low fiber diet for 2-3 weeks Activity: Resume your previous activity Driving/Machine Use: No limitations Weightbearing: Full weightbearing Non-emergency contact: Primary Care Provider Call non-emergency contact if: you have any medication questions Follow-up/Referrals: Zhou Brown MD [Primary Care Provider] - 08/02/21 11:00 am () Diet: Low Fiber Addtl Attending Provider Instructions: Diverticulitis: complete treatment with 10 days of Augmentin, antibiotic that you take twice a day, next dose is this evening should stay on a LOW FIBER diet for the next 2-3 weeks follow up with Dr. Brown in a week if you abdominal pain suddenly gets a lot worse instead of getting better, return to the emergency room consider outpatient colonoscopy in 6-8 weeks Pending Studies at Discharge: No Stand-Alone Forms: My [facility] [employer], Smoking Cessation Medications and DC Order Prescriptions: New amoxicillin-pot clavulanate [Augmentin] 875-125 mg tablet 1 tab PO BID Qty: 20 RF: 0 Continued rosuvastatin 5 mg tablet 5 mg PO QAM Qty: 90 RF: 3 ferrous sulfate [Nilton-Time] 325 mg (65 mg iron) tablet 325 mg PO QAM RF: 0 multivitamin Tablet 1 tab PO QAM RF: 0 triamterene-hydrochlorothiazid 37.5-25 mg tablet 0.5 tab PO QAM RF: 0 Discharge Orders: Discharge Order (Routine); Ordered 07/23/21 Ordered By: Gaurav Ward Admission Data Admit Date/Time: 07/22/21 17:56 Attending Provider: Gaurav Ward Admit Provider: Honorio Tillman Primary Care Provider: Zhou Brown Other Providers: Honorio Tillman ; Yaniv Galloway Other Interventions: Discharge Summary Assessment (RN) Last Done: 07/23/21 11:25 Coding Level of Care Code 64531 OBS Care - Discharge Diagnoses Diverticulitis K57.92 Perforation bowel K63.1 Aneurysm of left renal artery I72.2 Pulmonary nodules R91.8 HTN (hypertension) I10 Hypertension type: essential hypertension Hypercholesterolemia E78.00
== END 2021-07-23 14:15 | disposition home or self-care (01) | DRG 392 ==
LOC: ED 11:41 → 2N 17:56 → SUATTDRO 17:56 → INTOOBSV 17:56 → 2N 20:54
DX: Z86.010 Personal history of colon polyps; I10 Essential (primary) hypertension; E78.00 Pure hypercholesterolemia, unspecified; I72.2 Aneurysm of renal artery; Z88.8 Allergy status to other drugs, medicaments and biological substances; K57.80 Diverticulitis of intestine, part unspecified, with perforation and abscess without bleeding; Z20.822 Contact with and (suspected) exposure to COVID-19; Z79.899 Other long term (current) drug therapy; R91.1 Solitary pulmonary nodule

== ENCOUNTER 2021-09-29 07:48 | Inpatient (IN) ==
--- NOTE | 2021-09-14 09:54 | Anesthesiology Consultation ---
Date of Service September 14, 2021 Assessment & Plan (1) Encounter for pre-operative examination: Chart Review Chart Review: Pending: Refer to Additional Notes / Consult section (pending response from PCP re: PFO and preop Covid testing results ) and Patient NOT seen in Pre Admission Testing -Discussed with Dr. Mederos- will send note to PCP re: PFO and await response if further work up needed prior to surgery Per nursing assessment 09/14/21, patient resides and works in [facility]. Wears masks in stores. Did travel to [facility] for wrestling match in the past 30 days- wears mask. No known Covid positive exposures or Covid related sympto ms. No known Covid infection in the past 90 days. Pt is fully vaccinated for Covid. Preop Covid testing 09/27/20= will await results. History Surgery Operation Date: 09/29/21 09:25 Proposed Procedures p Laparoscopic Sigmoid Colectomy, - Rodrigo Barry DO s Open Umbilical Hernia Repair - Rodrigo Barry, Height/Weight Height: 5 ft 10 in Weight: 79.379 kg Allergies Allergy/AdvReac Type Severity Reaction Status Date / Time lisinopril Allergy Intermediate Angioedema Verified 09/14/21 08:00 amlodipine Allergy Unknown MOUTH SWELL Verified 09/14/21 08:00 Medications Home Medications Medication Instructions Recorded Confirmed Last Taken ferrous sulfate 325 mg (65 mg 325 mg PO QAM tab 10/24/19 09/14/21 07/22/21 iron) tablet (Nilton-Time) multivitamin 1 tab PO QAM 01/20/21 09/14/21 07/22/21 rosuvastatin 5 mg tablet 5 mg PO QAM #90 tab 05/06/21 09/14/21 07/22/21 triamterene 37.5 0.5 tab PO QAM #30 tab 09/12/21 09/14/21 Unknown mg-hydrochlorothiazide 25 mg tablet Past Medical History Medical History (Updated 09/14/21 @ 10:02 by Laverne Tafoya PA-C) Aneurysm of left renal artery PCP monitoring Per 06/29/[address] scan= There is suggestion of a left renal artery aneurysm measuring up to 11 mm in diameter. Broken rib left --- 2/2 fall on 02/06/21 -RESOLVED Cancer BASAL CELL FACE Cardiac murmur HX-NO CARDIOLOGY PFO noted on 2016 ECHO History of diverticulitis Last episode 06/2021- admitted to [facility] Reason for upcoming bowel procedure HTN (hypertension) Hypercholesterolemia Umbilical hernia Past Family History Family History Father Amyotrophic lateral sclerosis Other No family history of adverse response to anesthesia Denies family history of Ovarian cancer Prostate cancer Myocardial infarction Breast cancer Colorectal cancer Past Surgical History Surgical History H/O colonoscopy (02/07/16) COLON, SIGMOID, POLYPECTOMY: 1. FRAGMENTS OF PARTIALLY CAUTERIZED, EDEMATOUS MUCOSA. 2. NO ADENOMA OR DEFINITIVE NON-ADENOMATOUSPOLYP IDENTIFIED. Case History of open reduction and internal fixation (ORIF) procedure LLE History of surgery on extremity RLE History of tooth extraction Social History Smoking Status: Never smoker Do You Dip or Chew Tobacco: No Hx Alcohol Use: Yes Alcohol type: beer alcohol intake frequency: a few times a month Hx Substance Use: No substance use type: does not use Lab Results Anesthesia Preop Results Results Anesthesia Widget: WBC 4.65 K/uL (4.8-10.8) L 08/16/21 Hgb 12.6 g/dL (14.0-18.0) L 08/16/21 Hct 38.1 % (42-52) L 08/16/21 Plt 226 K/uL (130-400) 08/16/21 Na 141 mmol/L (136-145) 08/16/21 K 4.1 mmol/L (3.5-5.1) 08/16/21 Cl 107 mmol/L (98-107) 08/16/21 CO2 28 mmol/L (21-32) 08/16/21 BUN 17 mg/dl (7-18) 08/16/21 Creat 1.20 mg/dl (0.6-1.4) 08/16/21 Glucose Level 85 mg/dl (70-99) 08/16/21 Testing Electrocardiogram Date: 01/20/21 Sinus rhythm with PACs with apparent conduction at 90 bpm. Minimal voltage criteria for LVH, may be normal variant. Echocardiogram Date: 03/25/16 EF: 55-60% LV Function: normal RWMA: + none Other Findings: + diastolic dysfunction (Grade 1); no LVH Valvular Disease: + no significant valvular disease Left atrium is mildly dilated. Patent foramen ovale is present. Other Testing Abdomen/pelvis CT 07/22/21 = findings are compatible with sigmoid diverticulitis with likely perforation. No abscess is seen. (Pt admitted at time of CT scan - treated with abxs) Chest CT 06/29/21= no acute intrathoracic abnormality. Bilateral solid pulmonary nodules measuring up to 6 mm. The previously imaged nodules of the lung bases are unchanged from January 20, 2021. Healing subacute left-sided rib fractures.
[~2021-09-29 07:48] MED LIST changes: +CIPROFLOXACIN / D5W 400 MG/200 ML BAG IV SCH; -DIPH25CA65 PO; +HEPARIN SOD 5,000 UNIT/0.5 ML VIAL SQ SCH; +LACTATED RINGER'S 1,000 ML IV SCH; +metroNIDAZOLE 500 MG/100 ML BAG IV SCH
--- NOTE | 2021-09-29 08:08 | History & Physical Report ---
Date of Service September 29, 2021 Assessment & Plan (1) Diverticulitis: Plan: We previously discussed his options as well as the risks of today's surgery. We discussed reasonable postoperative expectations as well. I have answered all of his questions. We will proceed today with laparoscopic sigmoid colon resection. History of Present Illness Primary Care Provider: Zhou Brown MD Xiang is a very pleasant 71-year-old male who is here today for elective resection of his sigmoid colon due to recurrent and worsening diverticulitis. Is been no changes to his health status since I seen him last in the office. Allergies Allergy/AdvReac Type Severity Reaction Status Date / Time lisinopril Allergy Intermediate Angioedema Verified 09/14/21 08:00 amlodipine Allergy Unknown MOUTH SWELL Verified 09/14/21 08:00 Home Medications Medication Instructions Recorded Confirmed Type ferrous sulfate 325 mg (65 mg 325 mg PO QAM tab 10/24/19 09/14/21 History iron) tablet (Nilton-Time) multivitamin 1 tab PO QAM 01/20/21 09/14/21 History rosuvastatin 5 mg tablet 5 mg PO QAM #90 tab 05/06/21 09/14/21 Rx triamterene 37.5 0.5 tab PO QAM #30 tab 09/12/21 09/14/21 Rx mg-hydrochlorothiazide 25 mg tablet Past Med/Surg History Medical History (Updated 09/14/21 @ 10:02 by Laverne Tafoya PA-C) Aneurysm of left renal artery PCP monitoring Per 06/29/[address] scan= There is suggestion of a left renal artery aneurysm measuring up to 11 mm in diameter. Broken rib left --- 2/2 fall on 02/06/21 -RESOLVED Cancer BASAL CELL FACE Cardiac murmur HX-NO CARDIOLOGY PFO noted on 2015 ECHO History of diverticulitis Last episode 06/2021- admitted to [facility] Reason for upcoming bowel procedure HTN (hypertension) Hypercholesterolemia Umbilical hernia Surgical History H/O colonoscopy (02/07/16) COLON, SIGMOID, POLYPECTOMY: 1. FRAGMENTS OF PARTIALLY CAUTERIZED, EDEMATOUS MUCOSA. 2. NO ADENOMA OR DEFINITIVE NON-ADENOMATOUSPOLYP IDENTIFIED. Case History of open reduction and internal fixation (ORIF) procedure LLE History of surgery on extremity RLE History of tooth extraction Family History Father Amyotrophic lateral sclerosis Other No family history of adverse response to anesthesia Denies family history of Ovarian cancer Prostate cancer Myocardial infarction Breast cancer Colorectal cancer Social History Smoking Status: Never smoker Second Hand Exposure: Yes ( A CHILD); Do You Dip or Chew Tobacco: No; Hx Alcohol Use: Yes Alcohol type: beer Alcohol type Comment: socially Hx Substance Use: No Preferred Language: Turkish Communication Ability: Effective 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 Beliefs That Will Affect Care: None marital status: Current Living Situation: Spouse current occupational status: retired current occupation: [employer] How many Children do You have: 3 Other Information That Helps Us Care for You: No Feels Safe at Home: Yes Safety Concerns: Feels Safe At This Time Assistive Devices: Glasses Review of Systems All systems reviewed & are unremarkable except as noted in HPI & below Physical Exam Constitutional: WD/WN, vitals as above no acute distress and not ill appearing Eyes: PERRL, conjunctivae normal, anicteric sclerae EOM intact bilaterally ENMT: external ear and nose normal, oropharynx normal Ears: no hearing impairment Neck: trachea midline, no thyromegaly Respiratory: normal respiratory effort; no respiratory distress and does not use accessory muscles Cardiovascular: Rate/Rhythm: regular rate and regular rhythm Gastrointestinal (Abdomen): Soft. Nontender. No guarding or other peritoneal signs. Skin: no rashes, warm and dry Psychiatric: Orientation: alert, oriented x 3 and cooperative
[2021-09-29] MEDS ORDERED: ONDANSETRON INJ 2 MG/ML 2 ML VIAL ONE (08:41)
[2021-09-29] MEDS ORDERED: fentaNYL citrate 100 MCG/2 ML VIAL ONE ×2 (08:41→10:24)
[2021-09-29] MEDS ORDERED: DEXAMETHASONE SOD INJ 4 MG/ML VIAL ONE (08:41)
[2021-09-29] MEDS ORDERED: PROPOFOL IV EMULSION 10 MG/ML 20 ML VIAL IV ONE (08:41)
[2021-09-29] MEDS ORDERED: LIDOCAINE 2% 2 ML VIAL/AMP(20MG/ML) INFIL ONE (08:41)
[2021-09-29] MEDS ORDERED: ATROPINE SULFATE 0.1 MG/ML 10ML SYR IV PRN (08:58)
[2021-09-29] MEDS ORDERED: ePHEDrine sulfate 50 MG/ML AMP IV PRN (08:58)
[2021-09-29] MEDS ORDERED: PROMETHAZINE HCL 6.25 MG in SODIUM CHLORIDE 0.9% 50 ML IV PRN (08:58)
[2021-09-29] MEDS ORDERED: HYDROmorphone INJ 2 MG/ML SYR/VIAL IV PRN (08:58)
[2021-09-29] MEDS ORDERED: ONDANSETRON INJ 2 MG/ML 2 ML VIAL IV PRN ×2 (08:58→13:16)
[2021-09-29] MEDS ORDERED: EPINEPHrine INJ 1 MG/ML AMP ONE (09:11)
[2021-09-29] MEDS ORDERED: BUPIVACAINE 0.5 % 5 MG/1 ML MPF 30ML VIAL ONE (09:12)
[2021-09-29] MEDS ORDERED: MIDAZOLAM HCL 1 MG/ML 2ML VIAL ONE (09:13)
[2021-09-29] MEDS ORDERED: NEOSTIGMINE METHYLSULFATE 1 MG/ML 10ML VIAL ONE (10:17)
[2021-09-29] MEDS ORDERED: GLYCOPYRROLATE 0.2 MG/ML VIAL ONE (10:17)
[2021-09-29] MEDS ORDERED: ROCURONIUM BROMIDE 10 MG/ML 5 ML VIAL IV ONE (11:25)
--- NOTE | 2021-09-29 11:50 | Post Operative Brief Note ---
PG Immediate Post Op with CF Date of Surgery September 29, 2021 Pre & Post Diagnosis Operation Date: 09/29/21 09:25 Pre-Op Diagnosis: Diverticulitis, Umbilical Hernia Post-Op Diagnosis: Diverticulitis, Umbilical Hernia I identified the patient and participated in the time-out.: Yes Procedure Operation Date: 09/29/21 09:25 Actual Procedures p Laparoscopic Sigmoid Colectomy, Enterolysis - Rodrigo Barry DO s Open Umbilical Hernia Repair - Rodrigo Barry DO Surgeon Rodrigo Barry DO Mds Manager michelle Drew Estimated Blood Loss 15 Findings Consistent with Post-Op Diagnosis Specimens Specimen Description: A. sigmoid colon Drains Kumar Catheter (16 nepalese placed by David Natarajan RN without any difficulty, clear yellow urine noted. Anesthesia to monitor urine output) and Luisito-Sifuentes Drain (10 nepalese)
--- NOTE | 2021-09-29 12:07 | Operative Report ---
PG Post Operative Report Pre & Post Diagnosis Operation Date: 09/29/21 09:25 Pre-Op Diagnosis: Diverticulitis, Umbilical Hernia Post-Op Diagnosis: Diverticulitis, Umbilical Hernia I identified the patient and participated in the time-out.: Yes Procedure Operation Date: 09/29/21 09:25 Actual Procedures p Laparoscopic Sigmoid Colectomy, Enterolysis - Rodrigo Barry DO s Open Umbilical Hernia Repair - Rodrigo Barry DO Surgeon Rodrigo Barry DO Boiler Control Room Operator michelle Drew Estimated Blood Loss 15 Findings Consistent with Post-Op Diagnosis Specimens sigmoid colon Description of Procedure After informed consent was obtained the patient was taken to the operating room and placed in supine position. After successful intubation a Kumar catheter was sterilely placed. The patient was then placed in the low lithotomy position. The abdomen was shaved and sterilely prepped and draped in usual fashion. Infraumbilical incision was made with 11 blade scalpel. This was carried down through the soft tissue using cautery. We were able to identify the umbilical hernia and extended the fascial defect inferiorly. Two #0 Vicryl stay sutures were placed. Blunt finger penetration was used to enter the peritoneum. A 12 mm Hall trocar was placed and the abdomen was insufflated to 18 mmHg. The laparoscope was inserted and I examined the abdomen in 360 degrees. There were some adhesions in the lower abdomen. I therefore began by placing a right mid abdominal 5 mm trocar. Sharp scissor lysis was used to take down adhesions involving primarily small bowel to the anterior abdominal wall. Next I placed a right lower quadrant 12 mm port which would later be converted to a 15 mm port. Eventually after marking the colon we would place a left lower quadrant 5 mm trocar. The patient was placed in a steep Trendelenburg position and slightly airplaned to the right. I began by examining the sigmoid colon. It was markedly thickened as well as with a fair amount of fat wrapping from just proximal to the pelvic brim down into the pelvis. There was no evidence of acute diverticulitis however there was obvious chronic inflammatory changes. I began by using traction/ countertraction blunt dissection and harmonic scalpel to free up the colon along the white line of Toldt laterally. We took this up to the splenic flexure and distally down over the pelvic brim and past the peritoneal reflection. Once we had this freed up I marked a spot on the proximal colon where the serosa appeared normal and the mesentery was not thickened. At this point I made a small window using harmonic scalpel in the mesentery of the sigmoid colon. We carried this distally down over the pelvic brim until again we encountered normal-appearing rectosigmoid with normal mesentery. I then used a NEERAJ black cartridge 60 mm stapler to transect the rectosigmoid. We then continued to take down the mesentery of the sigmoid colon again using the harmonic scalpel. Once we were up to our marking stitch we then extended the left lower quadrant 5 mm trocar including the fascia. We toweled off the incision and delivered the colon through this incision. Bowel clamps were placed and the bowel was divided using a Busby scissor. It was sent to pathology. We used sizers to estimate the stapler size to be 28 mm. 2-0 silk was used to hand sew a pursestring. The anvil of the circular stapler was placed into the sigmoid colon and the pursestring secured it into place. After we placed the colon back into the abdomen we changed our gloves. We closed the posterior sheath using 2-0 Vicryl in a running fashion. The anterior fascia was then closed using 0 PDS in running fashion. At this point we reinsufflated the abdomen. The anvil laid over the pelvic brim nicely without tension. We used sizers to come in through the rectal stump initially followed by the handle of the EEA stapler. The spike was deployed above the staple line. We connected it to the anvil to the handle and they were secured together and fired creating a functional end-to-end anastomosis. Both donuts were intact. We filled the pelvis with fluid and insufflated the anastomosis while clamping bowel proximal to the anastomosis. It distended nicely with no evidence of air leak. I thoroughly irrigated the pelvis and there was adequate hemostasis. A 10 flat Luisito-Sifuentes drain was placed into the pelvis and brought out through the right lower quadrant trocar sites. It was secured to the skin using 2-0 silk. A final look around the abdomen showed no other abnormalities. We removed all the remaining trochars and desufflated the abdomen. We closed the umbilical hernia using 0 Vicryl in simple interrupted fashion. All the wounds were irrigated. The larger incision was closed using 3-0 Vicryl for deep layers and 4 Monocryl for skin. The smaller incisions were all closed using 4-0 Monocryl. 30 cc of Marcaine with epinephrine were injected around them for postoperative analgesia. Benzoin Steri-Strips, gauze and tape were used for the left lower quadrant larger incision. The remainder were covered using Dermabond glue. The patient was awakened extubated and transferred to recovery in stable condition. My physician expanded function dental assistant was present for the entire case and was instrumental in assisting, retracting, running the camera and assisting with the anastomosis, wound closure etc. I attest to the content of the Intraoperative Record and any orders documented therein. Any exceptions are noted below.
[2021-09-29] MEDS: fentaNYL citrate 100 MCG/2 ML VIAL IV PRN ×3 (12:14→12:59)
[2021-09-29] MEDS ORDERED: HYDROmorphone INJ 0.5 MG/0.5 ML SYR IV PRN (13:16)
[2021-09-29] MEDS: LACTATED RINGER'S 1,000 ML IV SCH ×2 (13:41→18:21)
[2021-09-29] MEDS: ACETAMINOPHEN 1,000 MG/100 ML VIAL IV SCH ×2 (13:59→21:28)
[2021-09-29] MEDS ORDERED: ACETAMINOPHEN 1000 MG/100 ML IV IV SCH (14:00)
--- NOTE | 2021-09-29 14:08 | Anesthesiology Progress Note ---
Date of Service September 29, 2021 Anesthesia Post Procedure Vital Signs Vital Signs: Temp Pulse Pulse Resp BP Pulse Ox 09/29/21 13:45 37.1 C 77 16 138/75 95 09/29/21 13:15 36.6 C 61 16 147/77 H 92 09/29/21 13:00 78 17 132/81 97 09/29/21 12:45 36 C L 66 17 138/88 99 09/29/21 12:35 68 20 135/84 92 09/29/21 12:25 69 19 147/84 H 98 09/29/21 12:15 73 16 149/92 H 96 09/29/21 12:05 79 17 150/98 H 97 09/29/21 11:58 36.2 C L 77 14 143/92 H 97 09/29/21 08:00 36.6 C 74 19 158/91 H 93 Pain Intensity Abdomen: Pain Intensity: 6 Transfer of Care Handoff Completed per policy Notes Mental Status: alert / awake / arousable Patient Amnestic to Procedure: Yes Nausea / Vomiting: adequately controlled Pain: adequately controlled Airway Patency, RR, SpO2: stable & adequate BP & HR: stable & adequate Hydration State: stable & adequate Anesthetic Complications: no major complications apparent
[2021-09-29] MEDS: HYDROmorphone INJ 0.5 MG/0.5 ML SYR IV PRN ×2 (15:22→21:52)
[2021-09-29] MEDS: CIPROFLOXACIN / D5W 400 MG/200 ML BAG IV SCH (21:32)
[2021-09-30] MEDS: LACTATED RINGER'S 1,000 ML IV SCH ×3 (02:12→19:32)
[2021-09-30] MEDS: HYDROmorphone INJ 0.5 MG/0.5 ML SYR IV PRN ×6 (02:12→22:46)
[2021-09-30] MEDS: ACETAMINOPHEN 1,000 MG/100 ML VIAL IV SCH (05:51)
--- NOTE | 2021-09-30 08:28 | Surgery Progress Note ---
Date of Service September 30, 2021 Assessment & Plan (1) S/P laparoscopic-assisted sigmoidectomy: Plan: POD#1 lap sigmoid colectomy, lysis of adhesions, umbilical hernia repair Doing well. Pain controlled, No Nausea Labs pending. VSS ELIZ serosang. Surgical dressings c/d/i. Belly soft Can start clear liquids today Song d/c OOB as tolerates [facility] surgery covering for the weekend Admission and Anticipated Discharge Date Admission Date: September 29, 2021 Supervising Physician Co-Signing Physician Notes I personally saw and evaluated the patient with Amelia Ward PA-C and agree with the assessment and plan. 71-year-old male postoperative day 1 laparoscopic sigmoid colectomy with end-to-end anastomosis He seems to be doing well with good pain control DC antibiotics Start clear liquids DC Song catheter Encourage ambulation incentive spirometry DVT prophylaxis with Lovenox Subjective Patient is feeling well. Some lower belly fullness related to song catheter (needed repositioned this AM and pt had improvement in symptoms). Pain is controlled. No nausea. Physical Exam Physical Exam: awake/alert Gastrointestinal (Abdomen): Inspection/Auscultation: + abdominal surgical incision (c/d/i) and + abdominal surgical drain present (serosang.); abdomen not distended Percussion/Palpation: abdomen soft Results & Data ([facility]) Vital Signs (Past 12 Hours) Vital Signs Temp Pulse Resp BP Pulse Ox 09/30/21 08:12 36.8 C 67 16 121/65 96 09/30/21 07:16 36.8 C 67 16 121/65 96 09/30/21 03:09 37.0 C 93 H 16 112/56 L 95 09/29/21 22:46 37.1 C 93 H 18 117/66 95 PG Care Time/CCT Total # of Minutes Spent Total Time Spent with Patient: Total time spent is greater than 50% in coordination of care (as documented) at patient's floor/unit and/or counseling patient: Coding Level of Care Code None Diagnoses S/P laparoscopic-assisted sigmoidectomy Z90.49
[2021-09-30] MEDS: ENOXAPARIN INJ 40 MG/0.4 ML SYR SQ SCH (08:35)
[2021-09-30 09:16] LABS: Eosinophils # (auto) 0.01 K/uL (0-0.5); Eosinophils % (auto) 0.1 %; Hematocrit (blood only) 35.9 % (42-52); Hemoglobin 11.8 g/dL (14.0-18.0); Immature Granulocytes # (auto) 0.01 K/uL (0.00-0.02); Immature Granulocytes % (auto) 0.1 %; Lymphocytes # (auto) 1.75 K/uL (1.2-3.4); Lymphocytes % (auto) 16.4 %; Mean Corpuscular Hemoglobin 29.1 pg (25-34); Mean Corpuscular Hgb Conc 32.9 g/dL (32-36); Mean Corpuscular Volume 88.4 fL (80-100); Mean Platelet Volume 10.2 fL (7.4-10.4); Monocytes # (auto) 1.03 K/uL (0.11-0.59); Monocytes % (auto) 9.7 %; Neutrophils # (auto) 7.86 K/uL (1.4-6.5); Neutrophils % (auto) 73.7 %; Platelet Count 191 K/uL (130-400); RDW Coefficient of Variation 13.1 % (11.5-14.5); RDW Standard Deviation 42.1 fL (36.4-46.3); Red Blood Count 4.06 M/uL (4.7-6.1); White Blood Count 10.66 K/uL (4.8-10.8)
[2021-09-30 09:44] LABS: BUN Creatinine Ratio 15.8 (10-20); Calcium 8.7 mg/dl (8.5-10.1); Creatinine Clr Calc Pharmacy 63.7 ml/min; Est GFR (African American) 76.4 ml/min; Potassium 4.1 mmol/L (3.5-5.1)
[2021-09-30] MEDS: CIPROFLOXACIN / D5W 400 MG/200 ML BAG IV SCH (11:12)
[2021-10-01] MEDS: ACETAMINOPHEN 325 MG TAB PO PRN ×3 (00:45→11:13)
[2021-10-01] MEDS: LACTATED RINGER'S 1,000 ML IV SCH ×3 (03:12→18:00)
[2021-10-01 06:33] LABS: Basophils # (auto) 0.01 K/uL (0-0.2); Basophils % (auto) 0.1 %; Eosinophils # (auto) 0.09 K/uL (0-0.5); Eosinophils % (auto) 1.2 %; Hemoglobin 10.8 g/dL (14.0-18.0); Lymphocytes # (auto) 1.85 K/uL (1.2-3.4); Lymphocytes % (auto) 23.8 %; Mean Corpuscular Hemoglobin 29.3 pg (25-34); Mean Corpuscular Hgb Conc 32.7 g/dL (32-36); Mean Corpuscular Volume 89.4 fL (80-100); Mean Platelet Volume 10.6 fL (7.4-10.4); Monocytes # (auto) 0.85 K/uL (0.11-0.59); Neutrophils # (auto) 4.96 K/uL (1.4-6.5); Neutrophils % (auto) 63.9 %; Platelet Count 168 K/uL (130-400); RDW Coefficient of Variation 13.3 % (11.5-14.5); RDW Standard Deviation 43.4 fL (36.4-46.3); Red Blood Count 3.69 M/uL (4.7-6.1); White Blood Count 7.76 K/uL (4.8-10.8)
[2021-10-01 07:02] LABS: BUN Creatinine Ratio 11.1 (10-20); Calcium 8.5 mg/dl (8.5-10.1); Creatinine Clr Calc Pharmacy 67.3 ml/min; Est GFR (African American) 81.7 ml/min; Est GFR (Non-African American) 70.5 ml/min; Potassium 3.9 mmol/L (3.5-5.1)
[2021-10-01] MEDS: ENOXAPARIN INJ 40 MG/0.4 ML SYR SQ SCH (08:24)
--- NOTE | 2021-10-01 11:42 | Surgery Progress Note ---
Date of Service October 01, 2021 Assessment & Plan (1) S/P laparoscopic-assisted sigmoidectomy: Plan: Doing well. Will advance diet slowly (still feeling full today). Await return of bowel function. Continue to increase actvity as tolerated. Admission and Anticipated Discharge Date Admission Date: September 29, 2021 Subjective Overall feels well. Tolerating clears but feels full easily. No nausea, not hungry to advance diet yet. Ambulating in [place]. Passing flatus. Pain controlled. Review of Systems Review of Systems: All systems reviewed & are unremarkable except as noted in HPI & below Physical Exam Constitutional: WD/WN, vitals as above Eyes: PERRL, conjunctivae normal, anicteric sclerae Respiratory: normal respiratory effort, lungs clear to auscultation Cardiovascular: RRR, no murmur, no edema Gastrointestinal (Abdomen): Inspection/Auscultation: abdomen normal to inspection, + abdomen distended (mild) and normal bowel sounds Percussion/Palpation: abdomen soft; abdomen nontender and no guarding incision clean, ELIZ serosanguinous, 95 cc output Neurologic: no focal motor deficits Psychiatric: A+Ox3, euthymic affect Results & Data ([facility]) Vital Signs (Past 12 Hours) Vital Signs Temp Pulse Resp BP Pulse Ox 10/01/21 07:28 37.3 C 81 18 145/74 H 82 L Laboratory Results Abnormal lab results 10/01/21 Range/Units 05:55 RBC 3.69 L (4.7-6.1) M/uL Hgb 10.8 L (14.0-18.0) g/dL Hct 33.0 L (42-52) % MPV 10.6 H (7.4-10.4) fL [place] # (Auto) 0.85 H (0.11-0.59) K/uL
[2021-10-02] MEDS: LACTATED RINGER'S 1,000 ML IV SCH ×3 (01:40→19:57)
[2021-10-02 07:06] LABS: Basophils # (auto) 0.02 K/uL (0-0.2); Basophils % (auto) 0.3 %; Eosinophils # (auto) 0.26 K/uL (0-0.5); Eosinophils % (auto) 3.6 %; Hematocrit (blood only) 35.9 % (42-52); Hemoglobin 11.7 g/dL (14.0-18.0); Immature Granulocytes # (auto) 0.01 K/uL (0.00-0.02); Immature Granulocytes % (auto) 0.1 %; Lymphocytes # (auto) 1.66 K/uL (1.2-3.4); Lymphocytes % (auto) 22.8 %; Mean Corpuscular Hgb Conc 32.6 g/dL (32-36); Mean Corpuscular Volume 88.9 fL (80-100); Mean Platelet Volume 10.7 fL (7.4-10.4); Monocytes # (auto) 0.67 K/uL (0.11-0.59); Monocytes % (auto) 9.2 %; Neutrophils # (auto) 4.67 K/uL (1.4-6.5); Platelet Count 177 K/uL (130-400); RDW Coefficient of Variation 13.1 % (11.5-14.5); RDW Standard Deviation 42.9 fL (36.4-46.3); Red Blood Count 4.04 M/uL (4.7-6.1); White Blood Count 7.29 K/uL (4.8-10.8)
[2021-10-02 07:22] LABS: BUN Creatinine Ratio 10.5 (10-20); Calcium 8.6 mg/dl (8.5-10.1); Creatinine Clr Calc Pharmacy 80.9 ml/min; Est GFR (African American) 101.1 ml/min; Est GFR (Non-African American) 87.2 ml/min; Potassium 3.8 mmol/L (3.5-5.1)
[2021-10-02] MEDS: ENOXAPARIN INJ 40 MG/0.4 ML SYR SQ SCH (08:39)
--- NOTE | 2021-10-02 10:13 | Surgery Progress Note ---
Date of Service October 02, 2021 Assessment & Plan (1) S/P laparoscopic-assisted sigmoidectomy: Plan: Doing well. Will advance diet to full liquids today. Await return of bowel function. Continue to increase activity as tolerated. Will decrease IVF today. Admission and Anticipated Discharge Date Admission Date: September 29, 2021 Subjective Overall feels well. Tolerating clears, feels better than yesterday. No bowel movement yet. Wants to advance diet. Pain controlled. Physical Exam Constitutional: WD/WN, vitals as above Eyes: PERRL, conjunctivae normal, anicteric sclerae Respiratory: normal respiratory effort, lungs clear to auscultation Cardiovascular: RRR, no murmur, no edema Gastrointestinal (Abdomen): Inspection/Auscultation: abdomen normal to inspection, normal bowel sounds, + abdominal surgical incision (clean and intact) and + abdominal surgical drain present (serosanguinous, 220 cc); abdomen not distended Percussion/Palpation: abdomen soft; abdomen nontender and no guarding Neurologic: no focal motor deficits Psychiatric: A+Ox3, euthymic affect Results & Data ([facility]) Vital Signs (Past 12 Hours) Vital Signs Temp Pulse Resp BP Pulse Ox 10/02/21 06:58 36.6 C 95 H 16 162/82 H 94 10/01/21 23:17 36.9 C 89 16 147/77 H 93 Laboratory Results 10/02/21 10/02/21 Range/Units 06:34 06:34 WBC 7.29 (4.8-10.8) K/uL RBC 4.04 L (4.7-6.1) M/uL Hgb 11.7 L (14.0-18.0) g/dL Hct 35.9 L (42-52) % MCV 88.9 (80-100) fL MCH 29.0 (25-34) pg MCHC 32.6 (32-36) g/dL RDW Std Deviation 42.9 (36.4-46.3) fL RDW Coeff of Aidan 13.1 (11.5-14.5) % Plt Count 177 (130-400) K/uL MPV 10.7 H (7.4-10.4) fL Immature Gran % (Auto) 0.1 % Neut % (Auto) 64.0 % Lymph % (Auto) 22.8 % [place] % (Auto) 9.2 % Eos % (Auto) 3.6 % Baso % (Auto) 0.3 % Neut # (Auto) 4.67 (1.4-6.5) K/uL Lymph # (Auto) 1.66 (1.2-3.4) K/uL [place] # (Auto) 0.67 H (0.11-0.59) K/uL Eos # (Auto) 0.26 (0-0.5) K/uL Baso # (Auto) 0.02 (0-0.2) K/uL Immature Gran # (Auto) 0.01 (0.00-0.02) K/uL Sodium 139 (136-145) mmol/L Potassium 3.8 (3.5-5.1) mmol/L Chloride 106 (98-107) mmol/L Carbon Dioxide 28 (21-32) mmol/L Anion Gap 5.0 (3-11) BUN 9 (7-18) mg/dl Creatinine 0.89 (0.6-1.4) mg/dl Est Cr Clr Drug Dosing 80.9 ml/min Est GFR ( Amer) 101.1 ml/min Est GFR (Non-Af Amer) 87.2 ml/min BUN/Creatinine Ratio 10.5 (10-20) Glucose 80 (70-99) mg/dl Calcium 8.6 (8.5-10.1) mg/dl
[2021-10-03 07:02] LABS: Basophils # (auto) 0.02 K/uL (0-0.2); Basophils % (auto) 0.3 %; Eosinophils # (auto) 0.35 K/uL (0-0.5); Eosinophils % (auto) 4.9 %; Hemoglobin 12.4 g/dL (14.0-18.0); Immature Granulocytes # (auto) 0.01 K/uL (0.00-0.02); Immature Granulocytes % (auto) 0.1 %; Lymphocytes # (auto) 1.66 K/uL (1.2-3.4); Lymphocytes % (auto) 23.1 %; Mean Corpuscular Hemoglobin 29.5 pg (25-34); Mean Corpuscular Hgb Conc 33.5 g/dL (32-36); Mean Corpuscular Volume 88.1 fL (80-100); Mean Platelet Volume 10.6 fL (7.4-10.4); Monocytes # (auto) 0.62 K/uL (0.11-0.59); Monocytes % (auto) 8.6 %; Neutrophils # (auto) 4.54 K/uL (1.4-6.5); Platelet Count 201 K/uL (130-400); RDW Standard Deviation 41.2 fL (36.4-46.3)
[2021-10-03 07:28] LABS: Calcium 8.7 mg/dl (8.5-10.1); Creatinine Clr Calc Pharmacy 77.4 ml/min; Est GFR (African American) 96.7 ml/min; Est GFR (Non-African American) 83.5 ml/min; Potassium 3.5 mmol/L (3.5-5.1)
[2021-10-03] MEDS: ENOXAPARIN INJ 40 MG/0.4 ML SYR SQ SCH (08:32)
[2021-10-03] MEDS: LACTATED RINGER'S 1,000 ML IV SCH (08:36)
[2021-10-03] MEDS ORDERED: oxyCODONE HCL IR 5 MG TAB (IMMEDIATE RELEASE) PO PRN ×2 (08:51)
--- NOTE | 2021-10-03 08:55 | Surgery Progress Note ---
Date of Service October 03, 2021 Assessment & Plan (1) S/P laparoscopic-assisted sigmoidectomy: Plan: POD#4 lap sigmoid colectomy, lysis of adhesions, umbilical hernia repair WBC 7.2, VSS Tolerating full liquids, no belly complaints. Passing flatus ELIZ drain serosang, keep in place for today Can trial advancing to low fiber. Awaiting BM. D/C IVF. Continue ambulation Possible home tomorrow if BM and continues to do well Admission and Anticipated Discharge Date Admission Date: September 29, 2021 Supervising Physician Co-Signing Physician Notes pnt s&e for Dr. Barry, agree with above. POD#4 lap assisted sigmoidectomy. tolerating full liquids, ambulating, pain controlled, passing flatus. wbc normal, h/h stable. advance to low fiber, possible d/c tomorrow. will d/c drain prior to discharge. Subjective Patient is feeling well. Offers no complaints. Tolerating full liquids. Pain controlled. Passing flatus, no BM yet. Has been out of bed ambulating. Physical Exam Physical Exam: awake/alert Gastrointestinal (Abdomen): Inspection/Auscultation: + abdominal surgical drain present (serosang. output) Percussion/Palpation: abdomen soft; abdomen nontender Results & Data ([facility]) Vital Signs (Past 12 Hours) Vital Signs Temp Pulse Resp BP Pulse Ox 10/03/21 07:46 36.8 C 84 16 164/84 H 94 10/02/21 21:37 36.8 C 84 16 157/84 H 92 PG Care Time/CCT Total # of Minutes Spent Total Time Spent with Patient: Total time spent is greater than 50% in coordination of care (as documented) at patient's floor/unit and/or counseling patient: Coding Level of Care Code None Diagnoses S/P laparoscopic-assisted sigmoidectomy Z90.49
--- NOTE | 2021-10-04 10:18 | Surgery Progress Note ---
Date of Service October 04, 2021 Assessment & Plan (1) S/P laparoscopic-assisted sigmoidectomy: Plan: POD#5 lap sigmoid colectomy, lysis of adhesions, umbilical hernia repair tolerating diet ok for discharge drain removed Admission and Anticipated Discharge Date Admission Date: September 29, 2021 Subjective tolerating low fiber, bowels moving, minimal pain Physical Exam Gastrointestinal (Abdomen): Inspection/Auscultation: + abdominal surgical incision (no erythema LLQ incision) and + abdominal surgical drain present (serous); abdomen not distended Results & Data ([facility]) Vital Signs (Past 12 Hours) Vital Signs Temp Pulse Resp BP Pulse Ox 10/04/21 07:25 36.8 C 86 16 135/77 94 PG Care Time/CCT Total # of Minutes Spent Total Time Spent with Patient: Total time spent is greater than 50% in coordination of care (as documented) at patient's floor/unit and/or counseling patient: Coding Level of Care Code None Diagnoses S/P laparoscopic-assisted sigmoidectomy Z90.49
[2021-10-04] MEDS: ENOXAPARIN INJ 40 MG/0.4 ML SYR SQ SCH (10:54)
--- NOTE | 2021-10-04 11:35 | Discharge Summary ---
Date of Service October 04, 2021 Admission HPI Per Admitting Provider Xiang is a very pleasant 71-year-old male who is here today for elective resection of his sigmoid colon due to recurrent and worsening diverticulitis. Is been no changes to his health status since I seen him last in the office. Principal Diagnosis Diverticulitis with complication Discharge Exam Gastrointestinal (Abdomen) Inspection/Auscultation: + abdominal surgical incision (clean, dry, steris intact); abdomen not distended Percussion/Palpation: abdomen soft Discharge Data Allergies Allergy/AdvReac Type Severity Reaction Status Date / Time lisinopril Allergy Intermediate Angioedema Verified 09/29/21 08:13 amlodipine Allergy Unknown MOUTH SWELL Verified 09/29/21 08:13 Procedures Performed Operation Date: 09/29/21 09:25 Actual Procedures p Laparoscopic Sigmoid Colectomy, Enterolysis - Rodrigo Barry DO s Open Umbilical Hernia Repair - Rodrigo Barry DO Hospital Course (1) Diverticular disease of intestine with perforation and abscess: 71 y/o male with recent diverticulitis and microperforation was now taken to the operating room for laparoscopic sigmoid colectomy. He was transferred to the surgical floor for routine postop care. Lovenox was used for DVT prophylaxis. Clears liquids were started on POD 1 and song was removed. On day 3 he had some returning bowl function and was able to advance to full liquids. Diet was then advance to low fiber on day 4. Once he was having bowel movements he was stable for discharge on POD 5. ELIZ drain was removed prior to discharge. Total Time Total Time Spent Total Time Spent (In Minutes): 15 Discharge Plan Discharge Items Patient Disposition: Home - Self-Care Reason For Visit: Diverticulitis, Umbilical Hernia Discharge Diagnosis: laparoscopic sigmoid colectomy umbilical hernia repair Activity: Per Instructions section Lifting: No more than 10 pounds Bathing Comment: may shower; no soaking in tubs/pools Exercise/Sports: Wait until after follow-up appointment Driving/Machine Use: no driving while taking narcotics for pain Non-emergency contact: Surgeon Call non-emergency contact if: you have any medication questions, your symptoms worsen, your pain is not controlled, your pain is concerning for you, you have a fever, your temperature is above 101.5, your wound has increased redness, your wound has increased drainage and your wound pain has increased Follow-up/Referrals: Zhou Brown MD [Primary Care Provider] - Rodrigo Barry DO [Surgeon] - 10/17/21 9:30 am (Please call the office to schedule follow up in clinic within 2 weeks) Diet: Low Fiber Addtl Attending Provider Instructions: Please continue on a low fiber diet until seen in clinic for follow up You may cover the wound where your drain was with dry 4x4 gauze and tape (changed daily and as needed) until the wound stops draining fluid Pending Studies at Discharge: Yes Studies:: surgical pathology Stand-Alone Forms: [facility], Smoking Cessation Medications and DC Order Prescriptions: New hydrocodone-acetaminophen 5-325 mg tablet 1 - 2 tab PO .q4h- q6h PRN (Reason: pain, for initial therapy, max 6 tabs per day ) Qty: 15 RF: 0 Continued rosuvastatin 5 mg tablet 5 mg PO QAM Qty: 90 RF: 3 triamterene-hydrochlorothiazid 37.5-25 mg tablet 0.5 tab PO QAM Qty: 30 RF: 5 ferrous sulfate [Nilton-Time] 325 mg (65 mg iron) tablet 325 mg PO QAM RF: 0 multivitamin Tablet 1 tab PO QAM RF: 0 Discharge Orders: Discharge Order (Routine); Ordered 10/04/21 Ordered By: Tiago Edmond/Other Patient Handouts: Low-Fiber Diet, Preventing Deep Vein Thrombosis Admission Data Admit Date/Time: 09/29/21 12:12 Attending Provider: Rodrigo Barry Admit Provider: Rodrigo Barry Primary Care Provider: Zhou Brown Other Interventions: Discharge Summary Assessment (RN) Last Done: 10/04/21 10:56 Coding Level of Care Code D/C DAY MANAGEMENT <30 MINS Diagnoses Diverticular disease of intestine with perforation and abscess K57.80
== END 2021-10-04 11:29 | disposition home or self-care (01) | DRG 331 ==
LOC: ASU 07:48 → 3N 12:12